=== PATIENT | male | born 1975 | race Caucasian/White ===

== ENCOUNTER 2016-12-13 02:00 | Observation (INO) | payer BC, OTHER ==
[~2016-12-13] VITALS: Ht 175.3 cm; Wt 106.1 kg
[~2016-12-13 02:00] MED LIST: LRT5 PO; MUSCLE RELAXOR
[2016-12-13] MEDS ORDERED: ACET650T97 PO (02:35)
[2016-12-13] MEDS ORDERED: SODIUM CHLORIDE 0.9% 1000ML 1,000 ML IV STA (02:45)
[2016-12-13] MEDS ORDERED: OPTIRAY 320 IV PRN (03:00)
[2016-12-13 03:12] LABS: BASO % 0.3 %; BASO ABS # 0.03 K/uL (0-0.2); COMPLETE YES; EOS % 2.5 %; HEMATOCRIT 41.2 % (42-52); IG% 0.1 %; LYMPH % 16.6 %; LYMPH ABS # 1.59 K/uL (1.2-3.4); MEAN CELL VOLUME 91.6 fL (80-100); MEAN CORPUSCULAR HEMOGLOBIN 33.3 pg (25-34); MEAN CORPUSCULAR HGB CONC 36.4 g/dl (32-36); MEAN PLATELET VOLUME 10.8 fL (7.4-10.4); NEUT % 76.5 %; PLATELET COUNT 251 K/uL (130-400); WHITE BLOOD COUNT 9.55 K/uL (4.8-10.8)
--- NOTE | 2016-12-13 03:23 | EMERGENCY ROOM VISIT NOTE ---
History Report prepared by Janice: Karen Faye Under the Supervision of: Dr. Bianka Au M.D. First contact with patient: 02:32 Chief Complaint: CONSTIPATION Stated Complaint: RECTAL BLEEDING/PAIN,CONSTIPATION Nursing Triage Summary: Patient ambulatory to triage, states "He has had, for a couple of days, rectal pain, bleeding and constipation. He is now getting chills." Patient had a tooth pulled three weeks ago. Patient feels that he is constipated because of taking the steroids, amoxil and motrin. Last BM for patient was about 26 hours ago. Patient reports nausea previously. No history of fissure or hemorrhoids. History of Present Illness The patient is a 41 year old male who presents to the Emergency Room with complaints of persistent rectal pain starting 3 days ago. He reports constipation, swelling, and bleeding in his rectum. His last bowel movement was yesterday. It was his first bowel movement in 3 days. He was on the toilet for 1.5 hours and found blood upon wiping. He has been constipated since he had his tooth pulled 3 weeks ago. He has been on Motrin, steroids, and amoxicillin. He reports some headache. He denies fever or abdominal pain. He also notes that he has a lesion on his penis. The patient and his used to be swingers. Source of History: patient, spouse/significant other Onset: 3 days ago Position: other (rectal) Quality: other (pain) Timing: other (persistent) Associated Symptoms: + headache, No abdominal pain, No fevers Note: Pt reports constipation, swelling and bleeding of the rectum, lesion on penis. Review of Systems See HPI for pertinent positives & negatives. A total of 10 systems reviewed and were otherwise negative. Past Medical & Surgical Medical Problems: (1) Diabetes Family History No pertinent family history stated. Social History Smoking Status: Former Smoker Marital Status: Housing Status: lives with significant other Current/Historical Medications Scheduled PRN Acetaminophen (Tylenol 8 Hour Arthritis), 650 MG PO DIRECTED PRN for Muscle Spasms Allergies Coded Allergies: Codeine (Verified Allergy, Mild, DELUSIONAL, 12/13/16) Physical Exam Vital Signs Date Time Temp Pulse Resp B/P Pulse Ox O2 Delivery O2 Flow Rate FiO2 12/13/16 05:42 88 16 124/58 96 Room Air 12/13/16 03:30 84 16 119/75 98 Room Air 12/13/16 02:04 36.9 89 18 136/85 96 Room Air Physical Exam Vital signs reviewed. General: Well-appearing, in no significant distress. HEENT: No scleral icterus, PERRLA, neck supple. Atraumatic. Cardiovascular: Regular rate and rhythm, no extra sounds. Pulmonary: Clear to auscultation bilaterally, normal work of breathing. Abdomen: Soft, nontender, nondistended, positive bowel sounds. : Excoriated area at the distal end of the shaft/glans penis with nodular growth to the right side of the glans penis. No urethral discharge, no scrotal swelling or tenderness Rectal: Tenderness and induration to the 6 o'clock position of the rectum with no active bleeding, small area of thrombosis Musculoskeletal: Atraumatic, no peripheral edema. Neurologic: Patient awake alert and oriented x 3. Skin: Warm, dry, penile irritation as described above Medical Decision & Procedures ER Provider Diagnostic Interpretation: Radiology results as stated below per my review and [facility] radiologist interpretation: CT Pelvis: No free air. No free fluid. Muscle density and bulk are within normal limits. Soft tissues are unremarkable. No spinal, pelvic, or femoral neck fractures. Pelvic contents are unremarkable. Appendix is visualized and within normal limits. Arterial calcifications. Laboratory Results 12/13/16 03:00 Red Blood Count 4.50, Mean Corpuscular Volume 91.6, Mean Corpuscular Hemoglobin 33.3, Mean Corpuscular Hemoglobin Concent 36.4, Mean Platelet Volume 10.8, Neutrophils (%) (Auto) 76.5, Lymphocytes (%) (Auto) 16.6, Monocytes (%) (Auto) 4.0, Eosinophils (%) (Auto) 2.5, Basophils (%) (Auto) 0.3, Neutrophils # (Auto) 7.30, Lymphocytes # (Auto) 1.59, Monocytes # (Auto) 0.38, Eosinophils # (Auto) 0.24, Basophils # (Auto) 0.03 12/13/16 03:00 12/13/16 04:30 Test 12/13/16 03:00 12/13/16 04:30 12/13/16 05:41 White Blood Count 9.55 K/uL (4.8-10.8) Red Blood Count 4.50 M/uL (4.7-6.1) Hemoglobin 15.0 g/dL (14.0-18.0) Hematocrit 41.2 % (42-52) Mean Corpuscular Volume 91.6 fL (80-100) Mean Corpuscular Hemoglobin 33.3 pg (25-34) Mean Corpuscular Hemoglobin Concent 36.4 g/dl (32-36) Platelet Count 251 K/uL (130-400) Mean Platelet Volume 10.8 fL (7.4-10.4) Neutrophils (%) (Auto) 76.5 % Lymphocytes (%) (Auto) 16.6 % Monocytes (%) (Auto) 4.0 % Eosinophils (%) (Auto) 2.5 % Basophils (%) (Auto) 0.3 % Neutrophils # (Auto) 7.30 K/uL (1.4-6.5) Lymphocytes # (Auto) 1.59 K/uL (1.2-3.4) Monocytes # (Auto) 0.38 K/uL (0.11-0.59) Eosinophils # (Auto) 0.24 K/uL (0-0.5) Basophils # (Auto) 0.03 K/uL (0-0.2) RDW Standard Deviation 43.1 fL (36.4-46.3) RDW Coefficient of Variation 12.8 % (11.5-14.5) Immature Granulocyte % (Auto) 0.1 % Immature Granulocyte # (Auto) 0.01 K/uL (0.00-0.02) Anion Gap 6.0 mmol/L (3-11) Est Creatinine Clear Calc Drug Dose 125.7 ml/min Estimated GFR () 119.2 Estimated GFR (Non- 102.9 BUN/Creatinine Ratio 9.1 (10-20) Calcium Level 8.0 mg/dl (8.5-10.1) Total Bilirubin 0.8 mg/dl (0.2-1) Alanine Aminotransferase (ALT/SGPT) 28 U/L (12-78) Alkaline Phosphatase 77 U/L (45-117) Total Protein 6.9 gm/dl (6.4-8.2) Albumin 2.9 gm/dl (3.4-5.0) Beta-Hydroxybutyric Acid 17.29 mg/dL (0.2-2.81) Direct Bilirubin mg/dl (0-0.2) Aspartate Amino Transf (AST/SGOT) U/L (15-37) Bedside Glucose 272 mg/dl (70-99) Laboratory results per my review. Medications Administered Medications (Trade) Dose Ordered Sig/Sabina Route Start Time Stop Time Status Last Admin Dose Admin Sodium Chloride (Nss 1000ml) 1,000 ml @ 999 mls/hr Q1H1M STAT IV 12/13/16 02:45 12/13/16 03:45 DC 12/13/16 03:02 999 MLS/HR Insulin Human Regular (novoLIN-R U-100 PER UNIT) 10 units NOW STAT SC 12/13/16 04:29 12/13/16 04:30 DC 12/13/16 04:42 10 UNITS Acetaminophen/ Hydrocodone Bitart ([place] 7.5/325 Tab) 1 tab NOW STAT PO 12/13/16 05:29 12/13/16 05:30 DC 12/13/16 05:38 1 TAB ED Course 0234: Past medical records reviewed. The patient was evaluated in room B2. A complete history and physical examination was performed. 0245: NSS 1000 ml @ 999 mls/hr IV. 0429: Insulin Human Regular 10 units SC. 0525: I reviewed the patient's case with Dr. Kellogg, [facility] hospitalist. He will evaluate the patient for further management. 0527: Upon reevaluation, the patient is resting comfortably. I discussed laboratory and radiographic results with him. He verbalized agreement of the treatment plan. The patient will be evaluated for further management and care. 0529: [place] 7.5/325 Tab 1 tab PO. 0533: Mycogen II Crm 1 appln EXT, Fluconazole 100 mg PO. Medical Decision Differential diagnosis: Sexually transmitted disease, perirectal abscess, thrombosed hemorrhoid, constipation, colitis, diverticulitis, cellulitis. This patient was evaluated and appeared to be in some discomfort. Physical examination reveals an area of induration on the rectum with a small thrombosis. It is unclear if this represented a thrombosed hemorrhoid or perirectal abscess. Patient's laboratory work reveals a blood sugar greater than 400. The patient was hydrated with normal saline solution. CT scan of the pelvis was performed and is negative. The patient was given 10 units of subcutaneous regular insulin. The penis is concerning for an area of yeast dermatitis with excoriation. Patient was given a Diflucan tablet. He was informed of the findings. He was given [place] 7.5 for his pain. As the patient has no primary care provider he will be evaluated by the hospitalist service for further management of the new onset diabetes. Patient is aware of plan and agrees. Consults Time Called: [phone] Consulting Physician: Dr. Kellogg, [facility] hospitalist Returned Call: [phone] I reviewed the patient's case with him. He will evaluate the patient for further management. Impression Primary Impression: Diabetes mellitus, new onset Additional Impressions: Thrombosed hemorrhoids Yeast dermatitis of penis Scribe Attestation The scribe's documentation has been prepared under my direction and personally reviewed by me in its entirety. I confirm that the note above accurately reflects all work, treatment, procedures, and medical decision making performed by me. Departure Information Dispostion Being Evaluated By Hospitalist Referrals No Doctor, Assigned (PCP) Patient Instructions My [facility] Problem Qualifiers
[2016-12-13 04:25] LABS: ALKALINE PHOSPHATASE 77 U/L (45-117); ALT/SGPT 28 U/L (12-78); BLOOD UREA NITROGEN 8 mg/dl (7-18); BUN/CREATININE RATIO 9.1 (10-20); CARBON DIOXIDE 29 mmol/L (21-32); CHLORIDE 100 mmol/L (98-107); CREATININE 0.91 mg/dl (0.60-1.40); GLUCOSE 463 mg/dl (70-99); SODIUM 135 mmol/L (136-145)
[2016-12-13] MEDS ORDERED: NovoLIN-R INSULIN PER UNIT CHARGE SC STA (04:29)
[2016-12-13 04:42] LABS: BETA-HYDROXYBUTYRATE 17.29 mg/dL (0.2-2.81)
[2016-12-13] MEDS ORDERED: HYDROCODONE/ACETAMINOPHEN 7.5/325MG TAB PO STA (05:29)
[2016-12-13] MEDS ORDERED: NYSTATIN/TRIAMCINOLONE CR 15 GM TUBE EXT STA (05:33)
[2016-12-13] MEDS ORDERED: FLUCONAZOLE 100 MG TAB PO STA (05:33)
[2016-12-13] MEDS ORDERED: ACETAMINOPHEN 325 MG TAB PO PRN (07:00)
[2016-12-13] MEDS ORDERED: DEXTROSE 50% 50 ML SYR IV PRN (07:00)
[2016-12-13] MEDS ORDERED: GLUCAGON FOR INJ 1 MG VIAL SQ PRN (07:00)
[2016-12-13] MEDS ORDERED: ONDANSETRON INJ 2 MG/ML 2 ML VIAL IV PRN (07:00)
[2016-12-13] MEDS ORDERED: HYDROCODONE/ACETAMINOPHEN 7.5/325MG TAB PO PRN (07:00)
[2016-12-13] MEDS ORDERED: GLUCOSE 40% GEL 15 GM TUBE PO PRN (07:00)
[2016-12-13] MEDS ORDERED: GLUCOSE 10 TABS/TUBE PO PRN (07:00)
[2016-12-13] MEDS ORDERED: IV FLUIDS COMPLETED PRN (07:00)
--- NOTE | 2016-12-13 07:10 | History and Physical ---
History & Physical Date & Time of Service: December 13, 2016 at 06:59 Chief Complaint: Rectal Bleeding/Pain,Constipation Primary Care Physician: No Doctor, Assigned History of Present Illness Source: patient, spouse The patient is a 41-year-old male who presents to the emergency department with worsening rectal pain that began about 3 days prior arrival. He reports having had dental surgery done about 3 weeks ago, and after which he was on motrin, amoxicillin and Medrol Dosepak. He reports he's been somewhat constipated since that interval. His last bowel movement was day before yesterday with that being the first in the past 3 days. Last evening he was on the toilet for 1 1/2 hours, and found blood upon wiping. He reports the pain seems to be extending through to his entire back and somewhat into his legs. He's had no previous episodes such as this in the past. He does report having had chills the previous evening as well. He also notes a penile lesion of indeterminate interval time. Social History Smoking Status: Former Smoker Smokeless Tobacco Use: No Alcohol Use: none Drug Use: none Marital Status: Housing status: lives with family Occupational Status: employed Multi-Drug Resistant Organisms History of MDRO: No Allergies Coded Allergies: Codeine (Verified Allergy, Mild, DELUSIONAL, 12/13/16) Home Medications Scheduled PRN Acetaminophen (Tylenol 8 Hour Arthritis), 650 MG PO DIRECTED PRN for Muscle Spasms Review of Systems Constitutional: + chills, No fatigue, No fever, No sweats, No weakness, No weight loss Eyes: No diplopia, No discharge, No eye pain, No problem reported, No redness, No worsening of vision ENT: No dental problems, No hearing loss, No nasal symptoms, No problem reported, No sore throat, No tinnitus, No trouble swallowing, No unusual epistaxis Respiratory: No cough, No dyspnea at rest, No dyspnea on exertion, No hemoptysis, No problem reported, No shortness of breath, No sputum, No wheezing Cardiovascular: No PND, No chest pain, No claudication, No edema, No orthopnea , No palpitations, No problem reported Abdomen: + GI bleeding, + pain, + problem reported (intractable rectal pain as noted) Musculoskeletal: No calf pain, No joint pain, No muscle pain, No problem reported, No swelling Genitourinary - Male: No dysuria, No hematuria, No impotence, No lesions, No penile discharge, No problem reported, No urinary frequency, No urinary hesitancy, No urinary incontinence, No urinary retention, No urinary urgency Neurologic: No balance problems, No memory loss, No numbness/tingling, No paralysis, No problem reported, No vertigo, No weakness Psychiatric: No anhedonism, No anxiety, No depression symptoms, No insomnia, No problem reported, No substance abuse Endocrine: No excessive thirst, No excessive urination, No fatigue, No problem reported Hematologic / Lymphatic: No abnormal bleeding/bruising, No clotting problems, No night sweats, No problem reported, No swollen lymph nodes Integumentary: No bleeding, No color change, No itch, No new/changing skin lesions, No problem reported, No rash Allergic / Immunologic: No environmental allergies, No food allergies, No frequent infections, No hives, No pet sensitivities, No poor healing, No problem reported, No prolonged convalescence, No seasonal allergies Physical Exam Vital Signs Date Time Temp Pulse Resp B/P Pulse Ox O2 Delivery O2 Flow Rate FiO2 12/13/16 05:42 88 16 124/58 96 Room Air 12/13/16 03:30 84 16 119/75 98 Room Air 12/13/16 02:04 36.9 89 18 136/85 96 Room Air General Appearance: WD/WN, no apparent distress Head: normocephalic, atraumatic Eyes: normal inspection, PERRL, EOMI, sclerae normal ENT: normal ENT inspection, hearing grossly normal, pharynx normal Neck: supple, no adenopathy, thyroid normal, no JVD, no carotid bruits, trachea midline Respiratory/Chest: chest non-tender, lungs clear, normal breath sounds, no respiratory distress, no accessory muscle use Cardiovascular: regular rate, rhythm, no edema, no gallop, no JVD, no murmur, normal peripheral pulses Abdomen/GI: normal bowel sounds, non tender, soft, no organomegaly, no pulsatile mass, + pertinent finding (thrombosed hemorrhoid on rectal exam) Back: normal inspection, no CVA tenderness, no muscle spasm, normal range of motion Extremities/Musculoskelatal: normal inspection, no calf tenderness, normal capillary refill, no pedal edema, normal range of motion, non-tender 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, no motor/sensory deficits, alert, normal mood/affect, normal reflexes, oriented x 3 Skin: normal color, warm/dry, no rash Lymphatic: no adenopathy Diagnostics Laboratory Results Results Past 24 Hours Test 12/13/16 03:00 12/13/16 04:30 12/13/16 04:40 12/13/16 05:41 Range/Units White Blood Count 9.55 4.8-10.8 K/uL Red Blood Count 4.50 4.7-6.1 M/uL Hemoglobin 15.0 14.0-18.0 g/dL Hematocrit 41.2 42-52 % Mean Corpuscular Volume 91.6 80-100 fL Mean Corpuscular Hemoglobin 33.3 25-34 pg Mean Corpuscular Hemoglobin Concent 36.4 32-36 g/dl Platelet Count 251 130-400 K/uL Mean Platelet Volume 10.8 7.4-10.4 fL Neutrophils (%) (Auto) 76.5 % Lymphocytes (%) (Auto) 16.6 % Monocytes (%) (Auto) 4.0 % Eosinophils (%) (Auto) 2.5 % Basophils (%) (Auto) 0.3 % Neutrophils # (Auto) 7.30 1.4-6.5 K/uL Lymphocytes # (Auto) 1.59 1.2-3.4 K/uL Monocytes # (Auto) 0.38 0.11-0.59 K/uL Eosinophils # (Auto) 0.24 0-0.5 K/uL Basophils # (Auto) 0.03 0-0.2 K/uL RDW Standard Deviation 43.1 36.4-46.3 fL RDW Coefficient of Variation 12.8 11.5-14.5 % Immature Granulocyte % (Auto) 0.1 % Immature Granulocyte # (Auto) 0.01 0.00-0.02 K/uL Sodium Level 135 136-145 mmol/L Potassium Level 3.5-5.1 mmol/L Chloride Level 100 98-107 mmol/L Carbon Dioxide Level 29 21-32 mmol/L Anion Gap 6.0 3-11 mmol/L Blood Urea Nitrogen 8 7-18 mg/dl Creatinine 0.91 0.60-1.40 mg/dl Est Creatinine Clear Calc Drug Dose 125.7 ml/min Estimated GFR () 119.2 Estimated GFR (Non- 102.9 BUN/Creatinine Ratio 9.1 10-20 Random Glucose 463 70-99 mg/dl Calcium Level 8.0 8.5-10.1 mg/dl Total Bilirubin 0.8 0.2-1 mg/dl Direct Bilirubin 0-0.2 mg/dl Aspartate Amino Transf (AST/SGOT) 15-37 U/L Alanine Aminotransferase (ALT/SGPT) 28 12-78 U/L Alkaline Phosphatase 77 45-117 U/L Total Protein 6.9 6.4-8.2 gm/dl Albumin 2.9 3.4-5.0 gm/dl Beta-Hydroxybutyric Acid 17.29 0.2-2.81 mg/dL Bedside Glucose 315 272 70-99 mg/dl Test 12/13/16 06:00 12/13/16 06:57 Range/Units Impression Assessment and Plan Intractable rectal pain/thrombosed hemorrhoid/rectal bleeding--the patient be admitted to the medical floor and kept nothing by mouth. Place on normal saline with potassium chloride 20 mEq 100 mils per hour. [place] 7.5/325 given in the emergency department helped the pain, and will be continued every 4 hours when necessary. We'll consult general surgery. Hyperglycemia--would not given the diagnosis of diabetes at this [facility]. We'll check hemoglobin A1c, and Accu-Cheks before meals and at bedtime with NovoLog coverage per scale. He'll need to have dietary counseling. He was of noted on a course of Medrol Dosepak recently. Penile lesion-- commonly has yeast infections. At the time on examining him he has been loaded up with a large amount of cream, which limits my examination. He likely has a yeast balanitis and will be treated as such. Level of Care Med/Surg Advanced Directives Existing Advance Directive: No Existing Living Will: No Existing Power of Panel Monitor: No Resuscitation Status FULL RESUSCITATION VTE Prophylaxis VTE Risk Assessment Done? Y/N: Yes Risk Level: Low Given or contraindicated: SCD's Social Service Consult None Apply
--- NOTE | 2016-12-13 07:27 | DIAGNOSTIC IMAGING REPORT ---
CT OF THE PELVIS WITH IV CONTRAST CT DOSE: 597.70 mGy.cm CLINICAL HISTORY: Rectal bleeding, pain and constipation. TECHNIQUE: Axial images of the pelvis were obtained following intravenous injection of 94 cc of Optiray 320 IV. COMPARISON STUDY: None. FINDINGS: No perirectal or perianal abscess or fistula is identified. Caliber and wall thickness of visualized small and large bowel are normal. The appendix is normal. There is sigmoid diverticulosis without evidence for acute diverticulitis. No pelvic lymphadenopathy is present. No pelvic mass or fluid collection is present. No suspicious skeletal lesions are identified. IMPRESSION: No significant abnormality within the pelvis. No perirectal/perianal abscess. Electronically signed by: Lalito Cardona M.D. 12/13/2016 7:26 AM Dictated Date/Time: 12/13/2016 7:23 AM
[2016-12-13 08:00] VITALS: BP 116/76; PULSE 76; TEMP 37.3; O2SAT 96; Ht 175.3 cm; Wt 106.1 kg
[2016-12-13] MEDS: INSULIN ASPART 100 UNITS/ML 3 ML PEN SC SCH ×2 (09:51→11:00)
[2016-12-13] MEDS ORDERED: HYDROmorphone INJ 1 MG/ML SYR IV PRN (10:00)
[2016-12-13] MEDS ORDERED: LIDOCAINE/EPINEPHRINE 1% 20 ML VIAL INFIL ONE (10:15)
[2016-12-13] MEDS ORDERED: SULF800T23 PO (11:57)
[2016-12-13] MEDS ORDERED: HYDR-3983 PO (11:57)
[2016-12-13] MEDS ORDERED: DFL100 PO (11:57)
--- NOTE | 2016-12-13 12:01 | Discharge Instructions ---
Discharge Instructions Date of Service December 13, 2016. Admission Reason for Admission: Hyperglycemia,Rectal Pain Or Anal Pain Discharge Discharge Diagnosis / Problem: hemmorhid, abscess Discharge Goals Goal(s): Decrease discomfort, Improve function, Increase independence, Improve disease control, Diagnostic testing, Therapeutic intervention Activity Recommendations Activity Limitations: resume your previous activity Shower/Bathe: no limitations . Instructions / Follow-Up Instructions / Follow-Up Patient to be discharged home Prescriptions for pain medication norco to take as directed Please take antibiotic bactrim twice a day for 6 days and fluconazole once a day for 7 more days Please follow up with surgeon Dr Iqbal in 1-2 weeks Current Hospital Diet Patient's current hospital diet: Full Liquid Diet, Diabetes Type 2 Diet Discharge Diet Recommended Diet: Diabetes Type 2 Diet Pending Studies Studies pending at discharge: no Laboratory Results Hemoglobin A1c Test 12/13/16 03:00 Range/Units Medical Emergencies . Who to Call and When: Medical Emergencies: If at any time you feel your situation is an emergency, please call 911 immediately. . Non-Emergent Contact Non-Emergency issues call your: Primary Care Provider Call Non-Emergent contact if: you have a fever, your pain is worsening . . "Provider Documentation" section prepared by Thomas Hinson. . VTE Core Measure Inpt VTE Proph given/why not?: SCD's
[2016-12-13] MEDS ORDERED: PNEUMOCOCCAL ADMINISTRATION CHARGE ONE (12:30)
[2016-12-13] MEDS ORDERED: PNEUMOCOCCAL POLYSACCHARIDES 25 MCG/0.5 ML VIAL/SYR IM. ONE (12:30)
[2016-12-13 15:10] VITALS: BP 104/65; PULSE 71; TEMP 36.8; O2SAT 97
--- NOTE | 2016-12-13 15:20 | Discharge Summary ---
Discharge Summary Date of Service December 13, 2016. Discharge Summary Admission Date: December 13, 2016 at 06:50 Discharge Date: December 13, 2016 Discharge Disposition: Home Principal Diagnosis: THrombosed hemmorhoid, abscess Consultations: General surgery Medication Reconciliation New Medications: Sulfa/Trimethoprim (Bactrim Ds 800MG/160MG) Tab 1 TAB PO BID for 7 Days, #6 TAB Fluconazole (Fluconazole) 100 Mg Tab 100 MG PO QAM for 7 Days, #7 TAB Hydrocodone/Acetaminophen 7.5MG/325MG ([place] 7.5MG/325MG) Tab 1 TAB PO Q4H PRN for Pain, #30 TAB PRN PAIN Continued Medications: Acetaminophen (Tylenol 8 Hour Arthritis) 650 Mg Tab 650 MG PO DIRECTED PRN for Muscle Spasms Discharge Exam Review of Systems: Constitutional: No chills, No fever Respiratory: No cough, No shortness of breath, No sputum, No wheezing Cardiovascular: No chest pain, No orthopnea Abdomen: No diarrhea, No nausea, No pain, No vomiting Musculoskeletal: No joint pain, No muscle pain Genitourinary - Male: No dysuria, No hematuria Physical Exam: General Appearance: WD/WN, no apparent distress Neck: supple, no adenopathy Respiratory/Chest: lungs clear, normal breath sounds Cardiovascular: no edema, no gallop Abdomen / GI: non tender, soft Neurologic/Psychiatric: alert, oriented x 3 Hospital Course Intractable rectal pain/thrombosed hemorrhoid/rectal bleeding--the patient admitted to the medical floor and kept nothing by mouth. Place on normal saline with potassium chloride 20 mEq 100 mils per hour. [place] 7.5/325 given in the emergency department helped the pain, and will be continued every 4 hours when necessary. We'll consult general surgery. Abscess I&D, bactrim and norco on discharge. F/U with general surgery in 1 week Hyperglycemia--would not given the diagnosis of diabetes at this [facility]. We'll check hemoglobin A1c, and Accu-Cheks before meals and at bedtime with NovoLog coverage per scale. He'll need to have dietary counseling. He was of noted on a course of Medrol Dosepak recently. Penile lesion-- commonly has yeast infections. At the time on examining him he has been loaded up with a large amount of cream, which limits my examination. He likely has a yeast balanitis and will be treated as such. Fluconazole given on discharge. Total Time Spent: Greater than 30 minutes This includes examination of the patient, discharge planning, medication reconciliation, and communication with other providers. Discharge Instructions Please refer to the electronic Patient Visit Report (Discharge Instructions) for additional information.
--- NOTE | 2016-12-13 16:02 | Surgery Consultation ---
Consultation Date of Consultation: December 13, 2016. Attending Physician: Thomas Hinson D.O. History of Present Illness pt with a 4 day hx of severe rectal pain. ? etiology. also saw small amount of blood when wiping. admitted last night with thrombosed hemorrhoid Past Medical/Surgical History Medical Problems: (1) Diabetes mellitus, new onset Status: Acute (2) Thrombosed hemorrhoids Status: Acute (3) Yeast dermatitis of penis Status: Acute Social History Smoking Status: Former Smoker Smokeless Tobacco Use: No Alcohol Use: none Drug Use: none Marital Status: Housing Status: lives with significant other Occupation Status: employed Allergies Coded Allergies: Codeine (Verified Allergy, Mild, DELUSIONAL, 12/13/16) Home Medications Scheduled Fluconazole (Fluconazole), 100 MG PO QAM Sulfa/Trimethoprim (Bactrim Ds 800MG/160MG), 1 TAB PO BID Scheduled PRN Acetaminophen (Tylenol 8 Hour Arthritis), 650 MG PO DIRECTED PRN for Muscle Spasms Hydrocodone/Acetaminophen 7.5MG/325MG ([place] 7.5MG/325MG), 1 TAB PO Q4H PRN for Pain Review of Systems Abdomen: + problem reported (rectal pain as per hpi) Physical Exam Date Time Temp Pulse Resp B/P Pulse Ox O2 Delivery O2 Flow Rate FiO2 12/13/16 15:10 36.8 71 18 104/65 97 Room Air 12/13/16 14:42 37.3 76 18 96 Room Air 12/13/16 08:00 37.3 76 18 116/76 96 Room Air 12/13/16 08:00 37.3 76 18 116/76 96 Room Air 12/13/16 07:09 78 124/83 96 12/13/16 05:42 88 16 124/58 96 Room Air 12/13/16 03:30 84 16 119/75 98 Room Air 12/13/16 02:04 36.9 89 18 136/85 96 Room Air General Appearance: + mild distress Head: normocephalic, atraumatic Eyes: EOMI ENT: hearing grossly normal Neck: supple, no JVD Respiratory/Chest: no respiratory distress, no accessory muscle use Abdomen/GI: non tender, soft, + pertinent finding (very tender fluid collection left lateral side of anus/rectum. exquisetly tender. c/w abcess) Neurologic/Psych: alert, oriented x 3 Skin: normal color, warm/dry Laboratory Results Last 24 Hours Test 12/13/16 03:00 12/13/16 04:30 12/13/16 04:40 12/13/16 05:41 White Blood Count 9.55 K/uL Red Blood Count 4.50 M/uL Hemoglobin 15.0 g/dL Hematocrit 41.2 % Mean Corpuscular Volume 91.6 fL Mean Corpuscular Hemoglobin 33.3 pg Mean Corpuscular Hemoglobin Concent 36.4 g/dl Platelet Count 251 K/uL Mean Platelet Volume 10.8 fL Neutrophils (%) (Auto) 76.5 % Lymphocytes (%) (Auto) 16.6 % Monocytes (%) (Auto) 4.0 % Eosinophils (%) (Auto) 2.5 % Basophils (%) (Auto) 0.3 % Neutrophils # (Auto) 7.30 K/uL Lymphocytes # (Auto) 1.59 K/uL Monocytes # (Auto) 0.38 K/uL Eosinophils # (Auto) 0.24 K/uL Basophils # (Auto) 0.03 K/uL RDW Standard Deviation 43.1 fL RDW Coefficient of Variation 12.8 % Immature Granulocyte % (Auto) 0.1 % Immature Granulocyte # (Auto) 0.01 K/uL Sodium Level 135 mmol/L Potassium Level mmol/L mmol/L Chloride Level 100 mmol/L Carbon Dioxide Level 29 mmol/L Anion Gap 6.0 mmol/L Blood Urea Nitrogen 8 mg/dl Creatinine 0.91 mg/dl Est Creatinine Clear Calc Drug Dose 125.7 ml/min Estimated GFR () 119.2 Estimated GFR (Non- 102.9 BUN/Creatinine Ratio 9.1 Random Glucose 463 mg/dl Calcium Level 8.0 mg/dl Total Bilirubin 0.8 mg/dl Direct Bilirubin mg/dl mg/dl Aspartate Amino Transf (AST/SGOT) U/L U/L Alanine Aminotransferase (ALT/SGPT) 28 U/L Alkaline Phosphatase 77 U/L Total Protein 6.9 gm/dl Albumin 2.9 gm/dl Beta-Hydroxybutyric Acid 17.29 mg/dL Bedside Glucose 315 mg/dl 272 mg/dl Test 12/13/16 06:00 12/13/16 11:12 Bedside Glucose 170 mg/dl Assessment & Plan migue-rectal abcess drained at bedside ok for d/c on oral antibiotics discussed local wound care f/u in office with me in 1 week.
--- NOTE | 2016-12-13 18:59 | OPERATIVE REPORT ---
DATE OF OPERATION: 12/13/2016 PREOPERATIVE DIAGNOSIS: Perirectal abscess. POSTOPERATIVE DIAGNOSIS: Same. PROCEDURE: I\T\D of perirectal abscess. SURGEON: Dr. Iqbal. ESTIMATED BLOOD LOSS: Approximately 10 mL. COMPLICATIONS: No immediate. ANESTHESIA: IV Dilaudid with 1% local lidocaine. DESCRIPTION OF PROCEDURE: At the bedside, the patient was placed in a right lateral decubitus position. The rectal area was sterilely prepped and draped with Betadine. We used 1% lidocaine to anesthetize the skin and anoderm over the area of the palpable abscess. An 11 blade scalpel was used to make an incision over it. We expressed a moderate amount of white pus. It was not foul smelling and did not appear to be consistent with anaerobic. We irrigated the wound and I placed some gauze, the corner of the gauze into the wound as a packing. The patient tolerated the procedure well. I attest to the content of the Intraoperative Record and any orders documented therein. Any exceptio ns are noted below.
[2016-12-14 06:24] LABS: ESTIMATED AVERAGE GLUCOSE 407 mg/dl; HA1C FLAG Normal (Normal)
[2016-12-14] MEDS ORDERED: FLUCONAZOLE 100 MG TAB PO SCH (08:00)
[2016-12-16 00:48] LABS: CHLAMYDIA TRACH RNA*** NOT DETECTED (NOT DETECTED); GC (NEIS GONORRHOEAE)RNA** NOT DETECTED (NOT DETECTED)
[2016-12-22] MEDS ORDERED: AMOX875T PO (13:58)
[2016-12-22] MEDS ORDERED: INSDGIPEN SC (13:58)
[2016-12-22] MEDS ORDERED: OXYC-57 PO (13:58)
[2016-12-22] MEDS ORDERED: GLC500 PO (13:58)
[2017-06-11] MEDS ORDERED: LACTCHW3 PO (15:06)
[2017-06-11] MEDS ORDERED: AMOX875T PO (15:06)
[2017-06-11] MEDS ORDERED: RXC5 PO (15:06)
[2017-06-12] MEDS ORDERED: CEPH500C PO (15:42)
== END 2016-12-13 15:45 | disposition home or self-care (01) ==
LOC: ENRESERVDT → ENRESERVTM → C.EDB 02:01 → C.4E 06:50
PROVIDERS: ADMIT Hospitalist; ATTEND Hospitalist
DX: K64.5 Perianal venous thrombosis (principal); K61.1 Rectal abscess; E11.9 Type 2 diabetes mellitus without complications; Z87.891 Personal history of nicotine dependence; Z88.5 Allergy status to narcotic agent

== ENCOUNTER 2016-12-19 12:15 | Inpatient (IN) | payer OTHER ==
[~2016-12-19] VITALS: Ht 175.3 cm; Wt 105.7 kg
[~2016-12-19 12:15] MED LIST changes: +ACET650T97 PO; +DFL100 PO; +HYDR-3983 PO; -LRT5 PO; -MUSCLE RELAXOR; +SULF800T23 PO
[2016-12-19] MEDS ORDERED: SODIUM CHLORIDE 0.9% 1000ML 1,000 ML IV STA (12:56)
[2016-12-19] MEDS ORDERED: OPTIRAY 320 IV PRN (13:15)
[2016-12-19 13:50] LABS: BASO % 0.3 %; BASO ABS # 0.02 K/uL (0-0.2); COMPLETE YES; EOS % 1.8 %; IG% 0.1 %; LYMPH % 14.2 %; LYMPH ABS # 1.08 K/uL (1.2-3.4); MEAN CELL VOLUME 92.3 fL (80-100); MEAN CORPUSCULAR HEMOGLOBIN 32.2 pg (25-34); MEAN CORPUSCULAR HGB CONC 34.9 g/dl (32-36); MEAN PLATELET VOLUME 10.1 fL (7.4-10.4); MONO % 8.8 %; NEUT % 74.8 %; PLATELET COUNT 294 K/uL (130-400); RED BLOOD COUNT 4.44 M/uL (4.7-6.1); WHITE BLOOD COUNT 7.59 K/uL (4.8-10.8)
[2016-12-19 14:14] LABS: BUN/CREATININE RATIO 11.9 (10-20); CALCIUM 8.6 mg/dl (8.5-10.1); CREATININE 0.91 mg/dl (0.60-1.40); POTASSIUM 4.1 mmol/L (3.5-5.1)
[2016-12-19] MEDS ORDERED: INSULIN HUMAN REGULAR PER UNIT 5 UNITS in SYRINGE 0 ML IV STA (14:21)
[2016-12-19 14:26] LABS: BETA-HYDROXYBUTYRATE 4.02 mg/dL (0.2-2.81)
[2016-12-19] MEDS ORDERED: NovoLIN-R INSULIN PER UNIT CHARGE ONE ×2 (14:31)
[2016-12-19] MEDS ORDERED: NovoLIN-R INSULIN PER UNIT CHARGE SQ ONE (15:00)
--- NOTE | 2016-12-19 15:19 | DIAGNOSTIC IMAGING REPORT ---
CT pelvis PELVIS W/IV CONT ONLY (CT) CLINICAL HISTORY: Pain. Rectal pain. Discharge. TECHNIQUE: Transaxial acquisition. Multi axial reformatted images. COMPARISON STUDY: 12/13/2016 FINDINGS: Bowel pattern is nonobstructive. The appendix is normal. Bladder is midline. There is no evidence for an intrapelvic collection or mass. There is slight perianal wall thickening medially left lateral to the anal verge. No evidence for drainable abscess or collection is seen. A component of mild perirectal cellulitis may be present. Inguinal regions are unremarkable. Osseous structures are intact. IMPRESSION: 1. Slight thickening of the tissues immediately left lateral to the anal verge. 2. This is consistent with a mild focal left perirectal infiltrative process, although there is no evidence for drainable abscess or collection. 3. The appearance is most consistent with that of a localized left perirectal cellulitis. 4. Remainder of the pelvic CT is negative Electronically signed by: Isaac Ndiaye M.D. 12/19/2016 3:18 PM Dictated Date/Time: 12/19/2016 3:15 PM
[2016-12-19] MEDS ORDERED: MoRPHine SULFATE 4 MG/ML 1 ML CARP\\VIAL IV STA (15:27)
[2016-12-19] MEDS ORDERED: AMPICILLIN/SULBACTAM SOD INJ 3,000 MG in SODIUM CHLORIDE 0.9% 100ML 100 ML IV STA (15:43)
[2016-12-19] MEDS ORDERED: ENOXAPARIN 40 MG/0.4 ML SYR SQ SCH (15:45)
[2016-12-19] MEDS ORDERED: MAGNESIUM HYDROXIDE SUSP 30 ML UDC PO PRN (15:45)
[2016-12-19] MEDS ORDERED: ONDANSETRON INJ 2 MG/ML 2 ML VIAL IV PRN (15:45)
[2016-12-19] MEDS ORDERED: ALUMINUM/MAGNESIUM/SIMETH (MAALOX MAX) 30 ML UDC PO PRN (15:45)
[2016-12-19] MEDS ORDERED: MoRPHine SULFATE 4 MG/ML 1 ML CARP\\VIAL IV PRN (15:45)
[2016-12-19] MEDS ORDERED: POLYETHYLENE (MIRALAX) 17 GM PACK PO PRN (15:45)
[2016-12-19] MEDS ORDERED: ACETAMINOPHEN 325 MG TAB PO PRN (15:45)
[2016-12-19] MEDS ORDERED: GLUCOSE 40% GEL 15 GM TUBE PO PRN (16:00)
[2016-12-19] MEDS ORDERED: DEXTROSE 50% 50 ML SYR IV PRN (16:00)
[2016-12-19] MEDS ORDERED: GLUCOSE 10 TABS/TUBE PO PRN (16:00)
[2016-12-19] MEDS ORDERED: GLUCAGON FOR INJ 1 MG VIAL SQ PRN (16:00)
[2016-12-19 16:17] LABS: INR 0.9 (0.9-1.1)
[2016-12-19 16:24] LABS: HEMATOCRIT 40.9 % (42-52); MEAN CELL VOLUME 92.1 fL (80-100); MEAN CORPUSCULAR HEMOGLOBIN 32.4 pg (25-34); MEAN CORPUSCULAR HGB CONC 35.2 g/dl (32-36); MEAN PLATELET VOLUME 9.9 fL (7.4-10.4); PLATELET COUNT 289 K/uL (130-400); RED BLOOD COUNT 4.44 M/uL (4.7-6.1)
[2016-12-19 17:30] VITALS: BP 125/81; PULSE 69; TEMP 36.5; O2SAT 97; BMI 34.5
[2016-12-19] MEDS: OXYCODONE/ACETAMINOPHEN 5-325 TAB PO PRN ×2 (17:51→22:05)
--- NOTE | 2016-12-19 18:05 | History and Physical ---
History & Physical Date & Time of Service: December 19, 2016 at 17:56 Chief Complaint: Cellulitis Primary Care Physician: No Doctor, Assigned Social History Smoking Status: Never Smoker Drug Use: none Marital Status: Housing status: lives with family Occupational Status: employed Multi-Drug Resistant Organisms History of MDRO: No Allergies Coded Allergies: Codeine (Verified Allergy, Mild, DELUSIONAL, 12/13/16) Home Medications Scheduled PRN Hydrocodone/Acetaminophen 7.5MG/325MG ([place] 7.5MG/325MG), 1 TAB PO Q4H PRN for Pain Physical Exam Vital Signs Date Time Temp Pulse Resp B/P Pulse Ox O2 Delivery O2 Flow Rate FiO2 12/19/16 17:21 72 20 142/81 97 12/19/16 15:46 70 18 129/76 97 Room Air 12/19/16 14:58 66 18 125/85 97 Room Air 12/19/16 13:36 73 18 123/69 99 Room Air 12/19/16 12:17 36.5 85 18 121/76 98 Room Air Diagnostics Laboratory Results Results Past 24 Hours Test 12/19/16 12:32 12/19/16 13:20 12/19/16 14:35 12/19/16 15:12 Range/Units White Blood Count 7.59 4.8-10.8 K/uL Red Blood Count 4.44 4.7-6.1 M/uL Hemoglobin 14.3 14.0-18.0 g/dL Hematocrit 41.0 42-52 % Mean Corpuscular Volume 92.3 80-100 fL Mean Corpuscular Hemoglobin 32.2 25-34 pg Mean Corpuscular Hemoglobin Concent 34.9 32-36 g/dl Platelet Count 294 130-400 K/uL Mean Platelet Volume 10.1 7.4-10.4 fL Neutrophils (%) (Auto) 74.8 % Lymphocytes (%) (Auto) 14.2 % Monocytes (%) (Auto) 8.8 % Eosinophils (%) (Auto) 1.8 % Basophils (%) (Auto) 0.3 % Neutrophils # (Auto) 5.67 1.4-6.5 K/uL Lymphocytes # (Auto) 1.08 1.2-3.4 K/uL Monocytes # (Auto) 0.67 0.11-0.59 K/uL Eosinophils # (Auto) 0.14 0-0.5 K/uL Basophils # (Auto) 0.02 0-0.2 K/uL RDW Standard Deviation 42.9 36.4-46.3 fL RDW Coefficient of Variation 12.7 11.5-14.5 % Immature Granulocyte % (Auto) 0.1 % Immature Granulocyte # (Auto) 0.01 0.00-0.02 K/uL Sodium Level 134 136-145 mmol/L Potassium Level 4.1 3.5-5.1 mmol/L Chloride Level 99 98-107 mmol/L Carbon Dioxide Level 28 21-32 mmol/L Anion Gap 7.0 3-11 mmol/L Blood Urea Nitrogen 11 7-18 mg/dl Creatinine 0.91 0.60-1.40 mg/dl Est Creatinine Clear Calc Drug Dose 125.4 ml/min Estimated GFR () 119.2 Estimated GFR (Non- 102.9 BUN/Creatinine Ratio 11.9 -20 Random Glucose 418 70-99 mg/dl Calcium Level 8.6 8.5-10.1 mg/dl Beta-Hydroxybutyric Acid 4.02 0.2-2.81 mg/dL Prothrombin Time 10.0 9.0-12.0 SECONDS Prothromb Time International Ratio 0.9 0.9-1.1 Bedside Glucose 310 240 70-99 mg/dl Test 12/19/16 15:47 12/19/16 16:15 Range/Units Bedside Glucose 243 70-99 mg/dl White Blood Count 8.10 4.8-10.8 K/uL Red Blood Count 4.44 4.7-6.1 M/uL Hemoglobin 14.4 14.0-18.0 g/dL Hematocrit 40.9 42-52 % Mean Corpuscular Volume 92.1 80-100 fL Mean Corpuscular Hemoglobin 32.4 25-34 pg Mean Corpuscular Hemoglobin Concent 35.2 32-36 g/dl RDW Standard Deviation 42.7 36.4-46.3 fL RDW Coefficient of Variation 12.6 11.5-14.5 % Platelet Count 289 130-400 K/uL Mean Platelet Volume 9.9 7.4-10.4 fL Microbiology Results 12/19/16 Gram Stain, Received Pending 12/19/16 Wound Culture, Received Pending Impression Assessment and Plan obs #[id number] VTE Prophylaxis VTE Risk Assessment Done? Y/N: Yes Risk Level: Moderate
[2016-12-19] MEDS ORDERED: IV FLUIDS COMPLETED PRN (18:45)
[2016-12-19] MEDS: AMPICILLIN/SULBACTAM SOD INJ 1,500 MG in SODIUM CHLORIDE 0.9% 100ML 100 ML IV SCH ×3 (18:55→23:17)
[2016-12-19 19:00] LABS: CHOLESTEROL/HDL RATIO 5.7
--- NOTE | 2016-12-19 19:12 | HISTORY & PHYSICAL EXAMINATION ---
DATE OF ADMISSION: 12/19/2016 CHIEF COMPLAINT: Rectal pain. HISTORY OF PRESENT ILLNESS: The patient is a very pleasant 41-year-old male who actually had been here briefly with a perirectal abscess that was drained on December 13. He went home, he was feeling okay and then probably around yesterday started having worse pain. He has not had fevers, chills, or sweats. He has not had any constitutional symptoms otherwise, but was having worse and worse rectal pain. He called for further advice and is directed for evaluation for concern that he may be developing another abscess, came here to the ER and when his rectum was examined aissatou pus was coming out rather profusely per the ER. Because of this, we were asked to see him for concern of perirectal cellulitis and started him on IV antibiotics to ensure improvement given the sensitive area infected. Separately he is a new onset diabetic, whenever he was here the last time he was here very briefly, admitted in home in the same day and A1c was drawn at that time and was pending, but he had left before results were back, it was 15.8. He had no prior knowledge of being diabetic and did not really have much preconceived notion of what diabetes means and so we had an extensive discussion in that regard. REVIEW OF SYSTEMS: Otherwise negative, except for as above. PAST MEDICAL HISTORY: New onset type 2 diabetes and his recent perirectal abscess. MEDICATIONS: His only home medication was [place] 7.5/325 that he was given for pain post-perirectal abscess drainage. PAST SURGICAL HISTORY: Drainage of the perirectal abscess. FAMILY HISTORY: He had a few second degree relatives with type 2 diabetes but no strong family history, otherwise no notable family history. SOCIAL HISTORY: He is not a smoker. He is . He is employed. He eats a reasonable amount starchy carbs and a reasonable amount of soda. Does not get a lot of exercise. ALLERGIES: CODEINE. PHYSICAL EXAMINATION: VITAL SIGNS: Temp 36.5, pulse 85, respiratory rate 18, blood pressure 121/76, 98% on room air. GENERAL: He is awake, alert, oriented x3, pleasant, in no acute distress. HEENT: Normocephalic, atraumatic. Mucous membranes are moist. CARDIOVASCULAR: Regular without rubs, murmurs, or gallops. LUNGS: Clear to auscultation bilaterally. No rales, rhonchi, or wheezes with good effort. ABDOMEN: Soft, nondistended, nontender. No masses or organomegaly. EXTREMITIES: Without cyanosis, clubbing or edema. No calf tenderness. SKIN: Shows no rashes, no pallor or icterus. RECTAL EXAM: He had been examined earlier by the ER with a description of definitely significant amount of pus and concern on perirectal erythema. When I examined him, it looks surprisingly normal, maybe a dull pink on the side and no exudate, so clearly markedly improved from his initial exam only a few hours ago. EXTREMITIES: Show no cyanosis, clubbing or edema. MUSCULOSKELETAL: Yields no gross lesions. NEUROLOGIC: Shows cranial nerves II-XII to be grossly intact. Gross motor and sensory are intact. MENTAL STATE: Shows good recent and remote recall. Normal mood and affect. Good judgment and insight. LABS AND DIAGNOSTICS: CBC shows a white count of 7.59, hemoglobin 14.3, platelets 294. Basic metabolic panel with sodium 134, potassium 4.1, chloride 99, CO2 28, BUN 11, creatinine 0.91, calcium 8.6, glucose 418, BHB 4.02. PT of 10 with an INR of 0.9. CT of his pelvis shows a nonobstructive bowel pattern. Appendix is normal. Bladder midline. No evidence of intrapelvic collection or mass, slight perianal wall thickening medially to left lateral to the anal verge. No evidence of drainable abscess or collection. Component of mild perirectal cellulitis may be present. Inguinal regions unremarkable. Osseous structures intact. So, essentially findings consistent with a left perirectal cellulitis without abscess. ASSESSMENT AND PLAN: 1. Perirectal cellulitis. Fortunately, no clear evidence of abscess. Given that he just had a surgery less than a week ago, we will ask surgery to take a look at him to ensure there is nothing that we are missing or is not being seen on CT or that there is not anything else that should be done with local care. Otherwise, we will continue him on Unasyn as started in the ER to allow for an easy transition to Augmentin at discharge. Fortunately, he is not showing any signs or symptoms of sepsis and the main reason to keep him in the hospital would be because of the very sensitive nature of the area involved in infection, should it worsen things could certainly worsen dramatically in a hurry with severe consequences, that said, given how quickly things have improved, I suspect that simply manipulation for exam, draining all the pus that was noted when the ER did their exam probably improved situation dramatically, especially given that on my exam, it is barely even noticeable to be cellulitis. I suspect with all of this he will likely be safe to go home tomorrow. I also suspect that his markedly uncontrolled diabetes is rather large contributor to why he has got this infection. 2. New onset uncontrolled type 2 diabetes. He was unaware of being a diabetic. He does not exercise much. It sounds like he does not eat terribly, but does eat a lot of potatoes and a reasonable amount of soda. We had extensive discussions on the basics of diabetes including "high sugars clogged arteries" and insulin resistance being a progressive process, particularly when faced with more exposure of simple carbohydrates. I discussed the critical importance of lifestyle and controlling and/or putting type 2 diabetes in remission. Discussed medications and discussed ongoing outpatient management as well as discussed consequences of uncontrolled type 2 diabetes such as heart attack, stroke, retinopathy, nephropathy and neuropathy. He expressed a great understanding of all of this as did his . Given his situation, we will start him on metformin 1000 b.i.d. He does not show any significant dehydration. There is not much of a chance of study needing contrast and so I do not really have much concern on renal function with this and obviously this would be first line agent of choice for sending him home and this will allow us a chance to see how well he responds to the metformin as far as sugar control, put him on a diabetic diet and obviously because the metformin alone may not be enough, we will put him on supplemental NovoLog. Should he need further treatment beyond the metformin, something along the lines of GLP-1 maybe a good second line agent, that said over time we are all very hopeful that with lifestyle change, he will be able to process in and/or improve his situation dramatically. I discussed postprandial glucose monitoring as a good means to assess how the food affects his body and allow him to learn to stray away from simple starch processed and sugary carbohydrates, and we discussed critical need for exercise as well as ways to work around his limitations with exercise given his knee and back issues such as recumbent bike or water walking in a warm water pool. He expressed good understanding of all of this. He does obviously present risks for coronary disease and given his current lack of a primary care physician, we will be working on setting up a primary care physician for him, but we will also get a lipid panel to better risk assess him given that we do not want him to "fall through the cracks" on vascular risk and also depending on the situation with his perirectal cellulitis versus abscess once feasible it would likely fit for benefit to start him on an 81 mg aspirin. 3. Deep venous thrombosis prophylaxis, Lovenox. 4. Hyponatremia. This is almost certainly pseudohyponatremia from his severe hyperglycemia. 5. Disposition. He will be observed on [facility] under the [facility] hospitalist service. ALEXANDRA
[2016-12-19] MEDS ORDERED: CEFTRIAXONE SOD INJ 1,000 MG in DEXTROSE 5% 50ML 50 ML IV SCH (20:00)
--- NOTE | 2016-12-19 20:06 | EMERGENCY ROOM VISIT NOTE ---
ED Visit Note First contact with patient: 12:33 Chief Complaint: Rectal pain. History of Present Illness: Mr. Mancia is a 41-year-old white male who ambulates into the ED accompanied by his complaining of rectal pain. Historically patient reports on December 13 he had an outpatient hemorrhoid thrombectomy performed by his PCP. He reported that procedure went well and afterward he was feeling better. Then over the last 2 days he reports he is having increasing pain at his surgical site and today he noted leaking pus from his rectum. He contacted his PCP who encouraged in the common to the ED for further evaluation and care. Currently he describes his pain as a constant achy sensation with occasional sharp pain. He rates his discomfort 5/10. The pain is located in the knee rectal area but also in the left gluteal fold. His pain worsens with palpation , sitting on his buttocks and attempting to have a bowel movement. He has not identified any alleviating factors related to the pain. He has not taken any medications for pain prior to arrival at the hospital. Associated with his pain he reports he has been having mild chills but no aissatou fever. He denies skin eruptions, skin color changes, recent buttocks trauma, headaches , dizziness, lightheadedness, upper respiratory tract symptoms, shortness of breath, chest pain, abdominal pain, nausea, vomiting, decreased appetite, back/ flank pain, urinary symptoms, hematuria, diarrhea, constipation, rectal bleeding , black/tarry stools, genital paresthesias, bowel and bladder dysfunction. Review of Systems: As noted above in history of present illness. All body systems were reviewed and found to be negative as noted above. Past Medical History: As previously noted. Current Medications: [place]. Allergies to Medications: Codeine. Social History: Patient is currently employed; he lives with his and feels safe in his home environment; he denies tobacco use. Physical Examination: Vital Signs: Date Time Temp Pulse Resp B/P Pulse Ox O2 Delivery O2 Flow Rate FiO2 12/19/16 15:46 70 18 129/76 97 Room Air 12/19/16 14:58 66 18 125/85 97 Room Air 12/19/16 13:36 73 18 123/69 99 Room Air 12/19/16 12:17 36.5 85 18 121/76 98 Room Air GENERAL: 41-year-old male in mild to moderate distress due to pain, nontoxic- appearing, afebrile and hemodynamically stable. NEUROLOGICAL: Awake, alert and oriented to person, place and time. Answering questions appropriately and following commands. Normal gait. Good hand eye coordination. No focal motor or sensory deficits. SKIN: Warm, dry and pink. HEENT: Atraumatic and normocephalic. PERRLA. Sclera white and conjunctiva pink. No drainage from naris. Oral cavity moist and pink. Pharynx is nonerythematous or edematous. Speech normal. No lymphadenopathy. Trachea midline. No jugular venous distention. BACK: No tenderness over the bony spine. No CVA tenderness. THORAX: Lungs sounds are clear to auscultation and equal bilaterally with symmetrical chest wall. No wheezing, rales or rhonchi. No crepitus, tenderness , subcutaneous air or deformities noted. HEART: Regular rate and rhythm. No gallops, rubs or murmurs are appreciated. ABDOMEN: Flat, soft and nontender. Positive bowel sounds in all quadrants. No guarding, rigidity or organomegaly. RECTAL: No external tags or hemorrhoids. When I did separate his buttocks he had aissatou drainage of purulent material. There was also tenderness over the left gluteus within the gluteal fold but I did not appreciate any induration or fluctuance or erythema. Digital examination was not performed. EXTREMITIES: Moves all extremities well on command and with purpose. All distal neurovascular statuses are intact and equal bilaterally. No calf tenderness or cords. ED Course: Patient is assessed as noted above. Laboratory Testing: Test 12/19/16 12:32 12/19/16 13:20 12/19/16 14:35 12/19/16 15:12 Range/Units White Blood Count 7.59 4.8-10.8 K/uL Red Blood Count 4.44 4.7-6.1 M/uL Hemoglobin 14.3 14.0-18.0 g/dL Hematocrit 41.0 42-52 % Mean Corpuscular Volume 92.3 80-100 fL Mean Corpuscular Hemoglobin 32.2 25-34 pg Mean Corpuscular Hemoglobin Concent 34.9 32-36 g/dl Platelet Count 294 130-400 K/uL Mean Platelet Volume 10.1 7.4-10.4 fL Neutrophils (%) (Auto) 74.8 % Lymphocytes (%) (Auto) 14.2 % Monocytes (%) (Auto) 8.8 % Eosinophils (%) (Auto) 1.8 % Basophils (%) (Auto) 0.3 % Neutrophils # (Auto) 5.67 1.4-6.5 K/uL Lymphocytes # (Auto) 1.08 1.2-3.4 K/uL Monocytes # (Auto) 0.67 0.11-0.59 K/uL Eosinophils # (Auto) 0.14 0-0.5 K/uL Basophils # (Auto) 0.02 0-0.2 K/uL RDW Standard Deviation 42.9 36.4-46.3 fL RDW Coefficient of Variation 12.7 11.5-14.5 % Immature Granulocyte % (Auto) 0.1 % Immature Granulocyte # (Auto) 0.01 0.00-0.02 K/uL Sodium Level 134 136-145 mmol/L Potassium Level 4.1 3.5-5.1 mmol/L Chloride Level 99 98-107 mmol/L Carbon Dioxide Level 28 21-32 mmol/L Anion Gap 7.0 3-11 mmol/L Blood Urea Nitrogen 11 7-18 mg/dl Creatinine 0.91 0.60-1.40 mg/dl Est Creatinine Clear Calc Drug Dose 125.4 ml/min Estimated GFR () 119.2 Estimated GFR (Non- 102.9 BUN/Creatinine Ratio 11.9 10-20 Random Glucose 418 70-99 mg/dl Calcium Level 8.6 8.5-10.1 mg/dl Beta-Hydroxybutyric Acid 4.02 0.2-2.81 mg/dL Prothrombin Time 10.0 9.0-12.0 SECONDS Prothromb Time International Ratio 0.9 0.9-1.1 Bedside Glucose 310 240 70-99 mg/dl Test 12/19/16 15:47 Range/Units Bedside Glucose 243 70-99 mg/dl Gram Stain: Pending Wound Culture: Pending IV Contrast Pelvic CT: Was reviewed by myself and read by the radiologist and shows slight thickening of the tissues immediately left lateral to the anal verge, this finding is consistent with localized perirectal cellulitis. No evidence of drainable abscess or collection was noted. Patient was initially hydrated with normal saline and offered pain medications and refused. He then requested pain medications and received 4 mg of morphine IV for pain. During his stay in the emergency department he was found to have a blood glucose level over 400; after reviewing medical records it was noted that on his last medical admission he was hyperglycemic and a A1C was over 15 indicating he was a diabetic. I did talk to the patient and he reported after his last admission there was an attempt to contact him but he was unavailable and they gave no information to his were made any recommendations for follow-up. At this point in time patient received 5 mg of regular insulin IV and his blood sugar was monitored which brought his serum glucose level down to approximately 240. Additionally after his CT examination he received 3 g of Unasyn IV for antibiotic coverage. Patient's case was reviewed with Dr. Shaikh; we agreed on diagnostic approach, treatment, disposition and plan. Patient's case was consulted with case management and Dr. Rueda, hospitalist , for medical observation/admission. Patient was educated about today's findings. Clinical Impression: Perirectal abscess. New-onset diabetes. Decision-Making: Initially my differential diagnosis I considered rectal abscess , hemorrhoids, rectal perforation and other causes. Disposition and Plan: Patient was brought in the hospital for observation/ admission by Dr. Rueda; please see his notes and orders for final disposition and plan.
[2016-12-19] MEDS: INSULIN ASPART 100 UNITS/ML 3 ML PEN SC SCH (21:29)
[2016-12-19 23:05] VITALS: BP 112/71; PULSE 71; TEMP 36.7; O2SAT 100
[2016-12-20] MEDS: AMPICILLIN/SULBACTAM SOD INJ 1,500 MG in SODIUM CHLORIDE 0.9% 100ML 100 ML IV SCH ×4 (05:36→23:45)
[2016-12-20] MEDS: OXYCODONE/ACETAMINOPHEN 5-325 TAB PO PRN ×4 (05:40→22:10)
[2016-12-20 06:57] VITALS: BP 108/59; PULSE 65; TEMP 36.8; O2SAT 95
[2016-12-20] MEDS: INSULIN ASPART 100 UNITS/ML 3 ML PEN SC SCH ×4 (08:54→21:03)
--- NOTE | 2016-12-20 13:22 | Pre-Operative Consultation ---
History General Date of Service: December 20, 2016. HPI HPI: The patient is a 41 year old male being seen for purulent drainage from an I&D performed by Dr Iqbal on 12/13. He began yesterday having worse pain and continued drainage from the 7 o'clock incision He has not had fevers, chills, or sweats. He has not had any constitutional symptoms otherwise, but was having worse and worse rectal pain. It is much improved today. A CT scan shows cellulitic area without abscess. Historian: patient Procedure Urgency: Acute Risk Assessment Daily beta prabhakar use?: No Problem List Medical Problems: (1) Diabetes mellitus, new onset Status: Acute (2) Thrombosed hemorrhoids Status: Acute (3) Yeast dermatitis of penis Status: Acute Medical & Surgical History Past Medical History: diabetes Past Surgical History: other (I&D perirectal abscess) Family History Family History: diabetes Social History Hx Tobacco Use In Past Year?: Yes (Chewing tobacco) Smoking Status: Former Smoker Drug Use: none Marital status: Housing status: lives with family Occupation status: employed Allergies Allergies: Coded Allergies: Codeine (Verified Allergy, Mild, DELUSIONAL, 12/13/16) Medications Current Inpatient Medications Current Inpatient Medications Medications (Trade) Dose Ordered Sig/Sabina Route Start Time Stop Time Status Last Admin Dose Admin Ioversol (Optiray 320) 111 ml UD PRN IV 12/19/16 13:15 12/23/16 13:14 Enoxaparin Sodium (Lovenox Inj) 40 mg Q24H SQ 12/19/16 15:45 01/18/17 15:44 Future Hold Acetaminophen (Tylenol Tab) 650 mg Q4H PRN PO 12/19/16 15:45 01/18/17 15:44 Al Hydrox/Mg Hydrox/Simethicone (Maalox Max Susp) 15 ml Q4H PRN PO 12/19/16 15:45 01/18/17 15:44 Magnesium Hydroxide (Milk Of Magnesia Susp) 30 ml Q6H PRN PO 12/19/16 15:45 01/18/17 15:44 Polyethylene (Miralax Powder Packet) 17 gm DAILY PRN PO 12/19/16 15:45 01/18/17 15:44 Ondansetron HCl (Zofran Inj) 4 mg Q6H PRN IV 12/19/16 15:45 01/18/17 15:44 Oxycodone/ Acetaminophen (Percocet 5-325mg Tab) 1 tab Q4H PRN PO 12/19/16 15:45 01/02/17 15:44 12/20/16 05:40 1 TAB Morphine Sulfate (MoRPHine SULFATE INJ) 4 mg Q4 PRN IV 12/19/16 15:45 01/02/17 15:44 Metformin HCl (Glucophage Tab) 1,000 mg BIDM PO 12/21/16 08:00 01/20/17 07:59 Insulin Aspart (novoLOG ASPART) SLIDING SCALE G... ACHS SC 12/19/16 21:00 01/18/17 20:59 12/20/16 08:54 4 UNITS Glucose (Glucose 40% Gel) 15-30 GRAMS 15 GRAMS... UD PRN PO 12/19/16 16:00 01/18/17 15:59 Glucose (Glucose Chew Tab) 4-8 Tablets 4 Tabl... UD PRN PO 12/19/16 16:00 01/18/17 15:59 Dextrose (Dextrose 50% 50ML Syringe) 25-50ML OF 50% DW IV FOR... UD PRN IV 12/19/16 16:00 01/18/17 15:59 Glucagon 1 mg 1 mg UD PRN SQ 12/19/16 16:00 01/18/17 15:59 Ampicillin Sodium/ Sulbactam Sodium/ Sodium Chloride (Unasyn Inj/Nss 100ml) 104 ml @ 200 mls/hr Q6H IV 12/19/16 18:00 12/29/16 17:59 12/20/16 11:53 200 MLS/HR Miscellaneous (Iv Fluids Completed) 1 ea PRN PRN N/A 12/19/16 18:45 12/19/17 18:44 Glipizide (Glucotrol Tab) 5 mg BIDM PO 12/20/16 17:45 01/19/17 17:44 Review of Systems Review of Systems Constitutional: denies chills, denies diaphoresis, denies fever Eyes: reports: no symptoms ENT: reports: no symptoms reported Cardiovascular: denies: chest pain, chest pressure, chest tightness, palpitations Respiratory: denies: cough, cyanosis, short of breath, stridor, wheezing Gastrointestinal: denies abdominal pain, denies constipation, denies diarrhea, denies nausea, denies vomiting Genitourinary - Male: reports: no symptoms Musculoskeletal: denies back pain, denies joint pain, denies joint swelling Integumentary: no symptoms reported Neurologic: reports: no symptoms Psychiatric: reports: no symptoms Endocrine: no symptoms Hematologic / Lymphatic: no symptoms Allergic / Immunologic: no symptoms Physical Exam Physical Exam General Appearance: + WD/WN, No distress Ears, Nose, Throat: + normal ENT inspection Neck: No lymphadenophy, No stiffness, No tenderness, No tracheal deviation Respiratory: No decreased breath sounds, No respiratory distress, No rhonchi, No stridor, No wheezing Cardiovascular: No bradycardia, No diastolic murmur, No gallop/S3, No gallop/S4 , No systolic murmur, No tachycardia Abdomen: No abnormal bowel sounds, No distension, No guarding, No hernia, No organomegaly, No tenderness Extremities: No calf tenderness, No deformity, No inflammation, No swelling Neurologic/Psychiatric: No disorientation, No motor deficit/weakness, No sensory deficit Skin Characteristics: + other (7 o'clock incision with some drainage; no fluctuance), No diaphoresis, No jaundice, No pallor, No rash Lymphatic: No abnormal adenopathy Diagnostics Labs Labs Results Past 24 Hours Test 12/19/16 13:20 12/19/16 14:35 12/19/16 15:12 12/19/16 15:47 Range/Units Prothrombin Time 10.0 9.0-12.0 SECONDS Prothromb Time International Ratio 0.9 0.9-1.1 Bedside Glucose 310 240 243 70-99 mg/dl Test 12/19/16 16:15 12/19/16 18:19 12/19/16 20:42 12/20/16 08:02 Range/Units White Blood Count 8.10 4.8-10.8 K/uL Red Blood Count 4.44 4.7-6.1 M/uL Hemoglobin 14.4 14.0-18.0 g/dL Hematocrit 40.9 42-52 % Mean Corpuscular Volume 92.1 80-100 fL Mean Corpuscular Hemoglobin 32.4 25-34 pg Mean Corpuscular Hemoglobin Concent 35.2 32-36 g/dl RDW Standard Deviation 42.7 36.4-46.3 fL RDW Coefficient of Variation 12.6 11.5-14.5 % Platelet Count 289 130-400 K/uL Mean Platelet Volume 9.9 7.4-10.4 fL Triglycerides Level 302 0-150 mg/dl Cholesterol Level 194 0-200 mg/dl HDL Cholesterol 34 mg/dl LDL Cholesterol, Calculated 100 mg/dl VLDL Cholesterol, Calculated 60 mg/dl Cholesterol/HDL Ratio 5.7 Bedside Glucose 282 219 70-99 mg/dl Test 12/20/16 12:09 Range/Units Bedside Glucose 238 70-99 mg/dl Diagnostic Radiology Diagnostic Radiology CT pelvis PELVIS W/IV CONT ONLY (CT) CLINICAL HISTORY: Pain. Rectal pain. Discharge. TECHNIQUE: Transaxial acquisition. Multi axial reformatted images. COMPARISON STUDY: 12/13/2016 FINDINGS: Bowel pattern is nonobstructive. The appendix is normal. Bladder is midline. There is no evidence for an intrapelvic collection or mass. There is slight perianal wall thickening medially left lateral to the anal verge. No evidence for drainable abscess or collection is seen. A component of mild perirectal cellulitis may be present. Inguinal regions are unremarkable. Osseous structures are intact. IMPRESSION: 1. Slight thickening of the tissues immediately left lateral to the anal verge. 2. This is consistent with a mild focal left perirectal infiltrative process, although there is no evidence for drainable abscess or collection. 3. The appearance is most consistent with that of a localized left perirectal cellulitis. 4. Remainder of the pelvic CT is negative Impression Assessment and Plan Assessment and Plan s/p I&D perirectal abscess -con't drainage -no recurrent abscess -dressings -will transfer to Dr Iqbal in AM
[2016-12-20 15:22] VITALS: BP 110/68; PULSE 80; TEMP 36.5; O2SAT 96
--- NOTE | 2016-12-20 18:10 | Progress Note ---
Subjective Date of Service: December 20, 2016. Subjective this pt feels somewhat better has persistent purulent drainage from rectum, has had 3 years of fatigue, increased urination and increased thirst Problem List Medical Problems: (1) Diabetes mellitus, new onset Status: Acute (2) Thrombosed hemorrhoids Status: Acute (3) Yeast dermatitis of penis Status: Acute Review of Systems Constitutional: No chills, No fever, No weakness Respiratory: No cough, No dyspnea on exertion, No shortness of breath Cardiac: No chest pain, No claudication, No edema Abdomen: No diarrhea, No nausea, No pain, No vomiting Neurologic: No memory loss, No weakness Endo: + excessive thirst, + excessive urination, + fatigue Objective Vital Signs Date Time Temp Pulse Resp B/P Pulse Ox O2 Delivery O2 Flow Rate FiO2 12/20/16 15:22 36.5 80 18 110/68 96 Room Air 12/20/16 15:15 Room Air 12/20/16 08:00 Room Air 12/20/16 06:57 36.8 65 19 108/59 95 Room Air 12/19/16 23:15 Room Air 12/19/16 23:05 36.7 71 18 112/71 100 Room Air Physical Exam General Appearance: WD/WN, no apparent distress Neck: supple, no JVD Respiratory/Chest: chest non-tender, lungs clear, normal breath sounds Cardiovascular: regular rate, rhythm, no murmur Abdomen: normal bowel sounds, non tender, soft, + pertinent finding (pt asks for a break from people examining his rectum as surgery was just by) Extremities: no pedal edema, no calf tenderness Laboratory Results Last 24 Hours Test 12/19/16 18:19 12/19/16 20:42 12/20/16 08:02 12/20/16 12:09 Triglycerides Level 302 mg/dl Cholesterol Level 194 mg/dl HDL Cholesterol 34 mg/dl LDL Cholesterol, Calculated 100 mg/dl VLDL Cholesterol, Calculated 60 mg/dl Cholesterol/HDL Ratio 5.7 Bedside Glucose 282 mg/dl 219 mg/dl 238 mg/dl Assessment and Plan 41 M with undiagnosed diabetes, and protocolitis with recent hemorrhoid issue uncontrolled diabetes, A1c 15, but not in acidosis, did have some hydroxybutarate but no AG or decrease in CO2, pt ops for attempt at oral meds but understands may go toward insulin eventually, will start glipizide and cannot start glucophage unitl after 48 hours post iv contrast 12/21 Proctitis, no abscess, on unasyn, surgery is following DVT prevention lovenox
[2016-12-20 22:52] VITALS: BP 113/74; PULSE 78; TEMP 36.9; O2SAT 97
[2016-12-21] MEDS: OXYCODONE/ACETAMINOPHEN 5-325 TAB PO PRN ×5 (02:36→21:49)
[2016-12-21] MEDS: AMPICILLIN/SULBACTAM SOD INJ 1,500 MG in SODIUM CHLORIDE 0.9% 100ML 100 ML IV SCH ×2 (05:42→13:02)
[2016-12-21 07:01] VITALS: BP 104/66; PULSE 66; TEMP 36.6; O2SAT 97
[2016-12-21] MEDS: METFORMIN HCL 500 MG TAB PO SCH ×3 (08:20→17:48)
[2016-12-21] MEDS: INSULIN ASPART 100 UNITS/ML 3 ML PEN SC SCH ×4 (08:25→20:41)
[2016-12-21] MEDS: ENOXAPARIN 40 MG/0.4 ML SYR SQ SCH (08:26)
[2016-12-21 14:14] VITALS: BMI 34.4
[2016-12-21 15:09] VITALS: BP 134/81; PULSE 82; TEMP 36.4; O2SAT 96
--- NOTE | 2016-12-21 16:00 | Surgery Progress Note ---
Surgery Progress Note Date of Service December 21, 2016. Subjective having pain left buttocks, chills, some green rectal drainage Objective Vital Signs: Date Time Temp Pulse Resp B/P Pulse Ox O2 Delivery O2 Flow Rate FiO2 12/21/16 15:09 36.4 82 18 134/81 96 Room Air 12/21/16 07:15 Room Air 12/21/16 07:01 36.6 66 19 104/66 97 Room Air 12/20/16 23:45 Room Air 12/20/16 22:52 36.9 78 16 113/74 97 Room Air Incision(s): clean, dry, no erythema, findings (no induration) Laboratory Results: Results Past 24 Hours Test 12/20/16 17:07 12/20/16 20:33 12/21/16 08:09 12/21/16 11:56 Range/Units Bedside Glucose 223 209 211 259 70-99 mg/dl Assessment & Plan s/p I&D perianal abscess no drainable collections by CT, he feels a a tender lump in left buttocks I cannot appreciate will add clinda, consider EUA if not improving, will keep NPO after midnight
[2016-12-21] MEDS ORDERED: CLINDAMYCIN IV 900 MG in DEXTROSE 5% ADD-VANTAGE 100ML 100 ML IV SCH (16:15)
[2016-12-21] MEDS ORDERED: PIPERACILL/TAZOBAC CONSULT ACTIVE PRN (16:30)
[2016-12-21] MEDS ORDERED: PIPERACILL/TAZOBAC IV 4.5 GM in DEXTROSE 5% 100ML IV ONE (16:45)
[2016-12-21] MEDS ORDERED: INSULIN GLARGINE SOLOSTAR 100 UNITS/ML 3 ML PEN SC SCH (21:00)
[2016-12-21] MEDS: PIPERACILL/TAZOBAC IV 4.5 GM in DEXTROSE 5% 100ML IV SCH (22:28)
[2016-12-21 23:46] VITALS: BP 120/75; PULSE 76; TEMP 36.7; O2SAT 97
--- NOTE | 2016-12-21 23:58 | Hospitalist Progress Note ---
Hospitalist Progress Note Date of Service December 21, 2016. Subjective Pt evaluation today including: conversation w/ patient, conversation w/ family , physical exam Rectal pain about the same. Had some lower abd pain and several episodes of loose stools today. Did start metformin this AM. Constitutional: No fever Respiratory: No shortness of breath Cardiovascular: No chest pain All Other Systems: Reviewed and Negative Objective Vital Signs Date Time Temp Pulse Resp B/P Pulse Ox O2 Delivery O2 Flow Rate FiO2 12/21/16 23:46 36.7 76 16 120/75 97 Room Air 12/21/16 15:30 Room Air 12/21/16 15:09 36.4 82 18 134/81 96 Room Air 12/21/16 07:15 Room Air 12/21/16 07:01 36.6 66 19 104/66 97 Room Air Physical Exam General Appearance: WD/WN, no apparent distress Eyes: normal inspection, sclerae normal ENT: hearing grossly normal Neck: trachea midline Respiratory/Chest: lungs clear, normal breath sounds, no respiratory distress, no accessory muscle use Cardiovascular: regular rate, rhythm, no edema, no gallop, no murmur Abdomen: normal bowel sounds, non tender, soft, no organomegaly, no pulsatile mass Extremities: non-tender, no pedal edema, no calf tenderness Neurologic/Psychiatric: alert, normal mood/affect, oriented x 3 Skin: normal color, warm/dry, no rash Laboratory Results Last 24 Hours Test 12/21/16 08:09 12/21/16 11:56 12/21/16 17:10 12/21/16 20:37 Bedside Glucose 211 mg/dl 259 mg/dl 205 mg/dl 281 mg/dl Assessment and Plan 41 M with undiagnosed diabetes, and protocolitis with recent hemorrhoid issue Uncontrolled diabetes mellitus II, A1c 15, but not in acidosis, did have some hydroxybutarate but no AG or decrease in CO2-pt initially declining basal insulin but discussed with him importance of this given persistent hyperglycemia and need for pancreatic rest. -he is agreeable to start Lantus today--> 8 units this evening -stop glipizide as not needed while on insulin -reduce dose of metformin from 1000mg bid to 500mg once daily due to GI upset and diarrhea -will need Ophtho as outpt -will need ACEI to start upon discharge -DM testing supplies will need to be Rxd and CDE appreciated -needs PCP for close follow up after discharge Proctitis, no abscess, on unasyn now switched to Zosyn today by Surgery, surgery is following -plan for possible exploration under anesthesia tomorrow if not improved DVT prevention lovenox
[2016-12-22] MEDS ORDERED: NURSING VERBAL MED ORDER ONE (05:00)
[2016-12-22] MEDS: PIPERACILL/TAZOBAC IV 4.5 GM in DEXTROSE 5% 100ML IV SCH (06:35)
[2016-12-22] MEDS: INSULIN ASPART 100 UNITS/ML 3 ML PEN SC SCH ×2 (06:39→13:35)
[2016-12-22 07:14] VITALS: BP 118/74; PULSE 61; TEMP 36.6; O2SAT 97
[2016-12-22 08:04] LABS: BASO % 0.7 %; BASO ABS # 0.05 K/uL (0-0.2); COMPLETE YES; EOS % 3.3 %; HEMATOCRIT 44.6 % (42-52); IG% 0.1 %; LYMPH % 28.7 %; LYMPH ABS # 2.08 K/uL (1.2-3.4); MEAN CELL VOLUME 94.3 fL (80-100); MEAN CORPUSCULAR HEMOGLOBIN 31.9 pg (25-34); MEAN CORPUSCULAR HGB CONC 33.9 g/dl (32-36); MEAN PLATELET VOLUME 9.9 fL (7.4-10.4); MONO % 8.5 %; NEUT % 58.7 %; PLATELET COUNT 332 K/uL (130-400); RED BLOOD COUNT 4.73 M/uL (4.7-6.1); WHITE BLOOD COUNT 7.26 K/uL (4.8-10.8)
[2016-12-22] MEDS ORDERED: METFORMIN HCL 500 MG TAB PO SCH (08:30)
--- NOTE | 2016-12-22 08:47 | Surgery Progress Note ---
Surgery Progress Note Date of Service December 22, 2016. Subjective no major changes. still having some discomfort. still having drainage. states pain is def not as bad as his first admission. no fevers. Objective Vital Signs: Date Time Temp Pulse Resp B/P Pulse Ox O2 Delivery O2 Flow Rate FiO2 12/22/16 07:54 Room Air 12/22/16 07:14 36.6 61 17 118/74 97 12/22/16 01:30 Room Air 12/21/16 23:46 36.7 76 16 120/75 97 Room Air 12/21/16 15:30 Room Air 12/21/16 15:09 36.4 82 18 134/81 96 Room Air General Appearance: no apparent distress Head: normocephalic, atraumatic Neck: no adenopathy Respiratory/Chest: no respiratory distress, no accessory muscle use Abdomen: non tender, soft, + pertinent finding (rectum without induration or palpable abcess. still with some purulent drainage. expected discomfort with palpation. ) Laboratory Results: Results Past 24 Hours Test 12/21/16 11:56 12/21/16 17:10 12/21/16 20:37 12/22/16 06:32 Range/Units Bedside Glucose 259 205 281 233 70-99 mg/dl Test 12/22/16 07:28 Range/Units White Blood Count 7.26 4.8-10.8 K/uL Red Blood Count 4.73 4.7-6.1 M/uL Hemoglobin 15.1 14.0-18.0 g/dL Hematocrit 44.6 42-52 % Mean Corpuscular Volume 94.3 80-100 fL Mean Corpuscular Hemoglobin 31.9 25-34 pg Mean Corpuscular Hemoglobin Concent 33.9 32-36 g/dl Platelet Count 332 130-400 K/uL Mean Platelet Volume 9.9 7.4-10.4 fL Neutrophils (%) (Auto) 58.7 % Lymphocytes (%) (Auto) 28.7 % Monocytes (%) (Auto) 8.5 % Eosinophils (%) (Auto) 3.3 % Basophils (%) (Auto) 0.7 % Neutrophils # (Auto) 4.26 1.4-6.5 K/uL Lymphocytes # (Auto) 2.08 1.2-3.4 K/uL Monocytes # (Auto) 0.62 0.11-0.59 K/uL Eosinophils # (Auto) 0.24 0-0.5 K/uL Basophils # (Auto) 0.05 0-0.2 K/uL RDW Standard Deviation 44.6 36.4-46.3 fL RDW Coefficient of Variation 12.9 11.5-14.5 % Immature Granulocyte % (Auto) 0.1 % Immature Granulocyte # (Auto) 0.01 0.00-0.02 K/uL Assessment & Plan migue-rectal abcess at this point, ct shows no drainable fluid collection, wbc normal, afebrile , and abcess cavity actively draining-- not really much more to add surgically. changed antibiotic to zosyn per pharm rec's. will cont to follow. ok from my standpoint for d/c on antibiotics will f/u in 1 week. if no better , will prob be forced to perform an exam under anesthesia. pt agreeable to plan.
[2016-12-22 08:49] LABS: BUN/CREATININE RATIO 12.3 (10-20); CALCIUM 8.9 mg/dl (8.5-10.1); CREATININE 0.97 mg/dl (0.60-1.40); POTASSIUM 3.8 mmol/L (3.5-5.1)
[2016-12-22] MEDS: ENOXAPARIN 40 MG/0.4 ML SYR SQ SCH (09:09)
[2016-12-22 12:00] VITALS: BMI 34.4
[2016-12-22] MEDS ORDERED: INSDGIPEN SC (13:58)
[2016-12-22] MEDS ORDERED: AMOX875T PO (13:58)
[2016-12-22] MEDS ORDERED: OXYC-57 PO (13:58)
[2016-12-22] MEDS ORDERED: GLC500 PO (13:58)
--- NOTE | 2016-12-22 14:05 | Discharge Instructions ---
Discharge Instructions Date of Service December 22, 2016. Admission Reason for Admission: Rectal abscess/Cellulitis Discharge Discharge Diagnosis / Problem: Rectal abscess/cellulitis, Diabetes mellitus type II Discharge Goals Goal(s): Improve disease control, Diagnostic testing, Therapeutic intervention Activity Recommendations Activity Limitations: resume your previous activity Exercise/Sports Limitations: as tolerated Shower/Bathe: no limitations Driving or Machine Use: no driving while taking oxycodone . Instructions / Follow-Up Instructions / Follow-Up You were admitted due to an infection in the rectal area. You were also diagnosed with diabetes mellitus type II with significantly elevated blood sugars. You were treated with antibiotics for the infection and insulin as well as metformin for your diabetes. The General Surgeon thinks that the infection is draining appropriately, and you should continue the antibiotics and follow up with Dr. Iqbal in the office in 1 week. Please make an appointment with a Family doctor at [facility] within 1 week for follow up on your diabetes and general health. You will need to see an Telecommunications Operator to check your eyes for damage from your diabetes. You should check your feet daily for cuts or wounds as you can develop numbness of the feet from diabetes. You will also need to start on a medication called lisinopril after seen by your new Family doctor to help protect your kidneys from damage from the diabetes. Current Hospital Diet Patient's current hospital diet: Diabetes Type 2 Diet Discharge Diet Recommended Diet: Diabetes Type 2 Diet Procedures Procedures Performed: CT pelvis Pending Studies Studies pending at discharge: no Laboratory Results Hemoglobin A1c Test 12/13/16 03:00 Range/Units Estimated Average Glucose 407 mg/dl Hemoglobin A1c 15.8 H 4.5-5.6 % Lipid Panel Test 12/19/16 18:19 Range/Units Triglycerides Level 302 H 0-150 mg/dl Cholesterol Level 194 0-200 mg/dl HDL Cholesterol 34 mg/dl Cholesterol/HDL Ratio 5.7 LDL Cholesterol, Calculated 100 mg/dl Medical Emergencies . Who to Call and When: Medical Emergencies: If at any time you feel your situation is an emergency, please call 911 immediately. . Non-Emergent Contact Non-Emergency issues call your: Primary Care Provider, Surgeon Call Non-Emergent contact if: you have a fever, your pain is not controlled, your pain is worsening, your pain is unusual for you, wound has increased drainage, wound has increased redness, wound has increased pain, you have any medication questions . . "Provider Documentation" section prepared by Nupur Martinez. . VTE Core Measure Inpt VTE Proph given/why not?: Enoxaparin (Lovenox)SQ [place] Drug Monitoring Program Search Results: patient reviewed within database, no issues identified
[2016-12-22 14:11] VITALS: BP 118/74; PULSE 61; TEMP 36.6; O2SAT 97
[2016-12-25 16:00] VITALS: Ht 175.3 cm; Wt 105.7 kg
--- NOTE | 2017-01-11 14:49 | Discharge Summary ---
Discharge Summary Date of Service December 22, 2016. Discharge Summary Admission Date: December 19, 2016 at 17:40 Discharge Date: December 22, 2016 Discharge Disposition: Home Principal Diagnosis: Rectal abscess Problems/Secondary Diagnoses: New onset Diabetes mellitus II with hyperglycemia External hemorrhoid Procedures: CT pelvis PELVIS W/IV CONT ONLY (CT) CLINICAL HISTORY: Pain. Rectal pain. Discharge. TECHNIQUE: Transaxial acquisition. Multi axial reformatted images. COMPARISON STUDY: 12/13/2016 FINDINGS: Bowel pattern is nonobstructive. The appendix is normal. Bladder is midline. There is no evidence for an intrapelvic collection or mass. There is slight perianal wall thickening medially left lateral to the anal verge. No evidence for drainable abscess or collection is seen. A component of mild perirectal cellulitis may be present. Inguinal regions are unremarkable. Osseous structures are intact. IMPRESSION: 1. Slight thickening of the tissues immediately left lateral to the anal verge. 2. This is consistent with a mild focal left perirectal infiltrative process, although there is no evidence for drainable abscess or collection. 3. The appearance is most consistent with that of a localized left perirectal cellulitis. 4. Remainder of the pelvic CT is negative Consultations: General Surgery Medication Reconciliation New Medications: Insulin Glargine (Lantus Solostar) 100 Unit/Ml Inj 10 UNIT SC HS, #1 BOX Metformin HCl (Metformin HCl) 500 Mg Tab 500 MG PO QDB, #60 TAB for one week then increase to twice daily Oxycodone/Acetaminophen 5MG/325MG (Percocet 5MG/325MG) Tab 1 TAB PO Q4H PRN for moderate pain, #20 TAB PAIN Discontinued Medications: Hydrocodone/Acetaminophen 7.5MG/325MG ([place] 7.5MG/325MG) Tab 1 TAB PO Q4H PRN for Pain, #30 TAB PRN PAIN Referrals At Discharge Follow up Referrals: Surgery Referral - Within 1 Week with Jean Carlos Iqbal D.O. Discharge Exam DOing better, still some drainage from rectum expressed on exam by Surgery today. Glucose better controlled, pt understands importance of treating DM with insulin and knows how to inject himself and check his glucose. He is afebrile. Physical Exam General Appearance: WD/WN, no apparent distress, overweight Eyes: normal inspection, sclerae normal ENT: hearing grossly normal Neck: trachea midline Respiratory/Chest: lungs clear, normal breath sounds, no respiratory distress, no accessory muscle use Cardiovascular: regular rate, rhythm, no edema, no gallop, no murmur Abdomen: normal bowel sounds, non tender, soft, no organomegaly, no pulsatile mass, rectal exam deferred Extremities: non-tender, no pedal edema, no calf tenderness Neurologic/Psychiatric: alert, normal mood/affect, oriented x 3 Skin: normal color, warm/dry, no rash Review of Systems: Constitutional: No fever Eyes: No problem reported ENT: No problem reported Respiratory: No problem reported Cardiovascular: No problem reported Abdomen: + pain (in rectal area) Genitourinary - Male: No problem reported Neurologic: No problem reported Psychiatric: No problem reported Endocrine: + excessive thirst, + excessive urination Hematologic / Lymphatic: No problem reported Integumentary: No problem reported Hospital Course 41 M with newly diagnosed diabetes, and protocolitis with recent hemorrhoid thrombosed and I&D'd, now here with rectal abscess and hyperglycemia Uncontrolled diabetes mellitus II, A1c 15, but not in acidosis, did have some hydroxybutarate but no AG or decrease in CO2-pt initially declining basal insulin but discussed with him importance of this given persistent hyperglycemia and need for pancreatic rest. -he is agreeable to continuing Lantus upon discharge--> continue Lantus 10 units daily and f/u with PCP arranged -stop glipizide as not needed while on insulin -reduce dose of metformin from 1000mg bid to 500mg once daily due to GI upset and diarrhea -will need Ophtho as outpt -will start ACEI upon discharge for renal protection -will need statin too but will allow PCP to prescribe as I don't want to start too many new meds at once -DM testing supplies Rxd and CDE appreciated -needs PCP for close follow up after discharge Proctitis, no definite abscess but with purulent drainage on exam as per Surgery , no need for surgery, received unasynand then switched to Zosyn. Had improvement in pain. Discharge to home on Augmentin and f/u with Surgery in office DVT prevention lovenox Total Time Spent: Greater than 30 minutes This includes examination of the patient, discharge planning, medication reconciliation, and communication with other providers. Discharge Instructions Please refer to the electronic Patient Visit Report (Discharge Instructions) for additional information. Follow-Up PCP within 1 week General Surgery in 1 week Additional Copies To [facility]
[2017-06-11] MEDS ORDERED: AMOX875T PO (15:06)
[2017-06-11] MEDS ORDERED: RXC5 PO (15:06)
[2017-06-11] MEDS ORDERED: LACTCHW3 PO (15:06)
[2017-06-12] MEDS ORDERED: CEPH500C PO (15:42)
== END 2016-12-22 14:31 | disposition home or self-care (01) | DRG 394 ==
LOC: ENRESERVDT → ENRESERVTM → C.EDB 12:16 → C.MSN 15:49 → OBSVTOIN 17:40
PROVIDERS: ADMIT Family Medicine; ATTEND Family Medicine
DX: K61.1 Rectal abscess (principal); K51.314 Ulcerative (chronic) rectosigmoiditis with abscess; E87.1 Hypo-osmolality and hyponatremia; E11.65 Type 2 diabetes mellitus with hyperglycemia; Z87.891 Personal history of nicotine dependence

== ENCOUNTER 2017-04-14 12:16 | Emergency (ER) | payer OTHER ==
[~2017-04-14] VITALS: Ht 175.3 cm; Wt 114.8 kg
[~2017-04-14 12:16] MED LIST changes: -ACET650T97 PO; -DFL100 PO; +GLC500 PO; -HYDR-3983 PO; +INSDGIPEN SC; +OXYC-57 PO; -SULF800T23 PO
[2017-04-14 12:22] VITALS: TEMP 36.4; Ht 175.3 cm; Wt 114.8 kg
[2017-04-14] MEDS ORDERED: EPINEPHRINE ADULT AUTO-INJECT 0.3 MG SYR IM SCH (13:15)
[2017-04-14] MEDS ORDERED: FAMOTIDINE 20 MG TAB PO ONE (13:15)
[2017-04-14] MEDS ORDERED: INSDGIPEN SC (13:35)
[2017-04-14] MEDS ORDERED: GLC/500 PO (13:35)
--- NOTE | 2017-04-14 13:46 | EMERGENCY ROOM VISIT NOTE ---
History Report prepared by Janice: Karen Faye Under the Supervision of: Dr. Chicho Woo M.D. First contact with patient: 12:30 Chief Complaint: ALLERGIC REACTION Stated Complaint: BEE STING History of Present Illness The patient is a 41 year old white male with a past medical history of diabetes , bee sting allergy who presents to the ED with a cc of persistent allergic reaction beginning 50 minutes ago. Positive finger pain, headache. Negative SOB , nausea, vomiting, diarrhea. He is unsure of his tetanus status. He does chew tobacco. Source of History: patient Onset: 50 minutes ago Position: other (global) Quality: other (allergic reaction) Timing: other (persistent) Associated Symptoms: + headache, No SOB, No nausea, No vomiting, No diarrhea Note: Pt reports finger pain. Review of Systems See HPI for pertinent positives and negatives. A total of ten systems were reviewed and were otherwise negative. Past Medical & Surgical Medical Problems: (1) Cellulitis (2) Diabetes (3) Hyperglycemia (4) Rectal abscess (5) Rectal or anal pain (6) Uncontrolled diabetes mellitus Family History No pertinent family history stated. Social History Smoking Status: Former Smoker Drug Use: none Marital Status: Housing Status: lives with significant other Occupation Status: employed Current/Historical Medications Scheduled Epinephrine (Epipen 2-Kaiden), 1 DOSE IM DIRECTED Insulin Glargine (Lantus Solostar), 5 UNITS SC QAM Metformin Hcl (Glucophage), 500 MG PO BID Prednisone (Prednisone), 50 MG PO DAILY Allergies Coded Allergies: Codeine (Verified Allergy, Mild, DELUSIONAL, 12/13/16) Physical Exam Vital Signs Date Time Temp Pulse Resp B/P (MAP) Pulse Ox O2 Delivery O2 Flow Rate FiO2 04/14/17 14:12 75 20 144/77 95 04/14/17 13:36 86 21 04/14/17 13:31 78 21 95 Room Air 04/14/17 13:26 82 04/14/17 13:26 83 18 97 Room Air 04/14/17 12:51 96 Room Air 04/14/17 12:22 36.4 85 22 133/83 96 Room Air Physical Exam GENERAL: Awake, alert, well-appearing, NAD HENT: Normocephalic, atraumatic. No posterior pharynx swelling. EYES: Normal conjunctiva. Sclera non-icteric. NECK: Supple. No nuchal rigidity. FROM. No stridor. RESPIRATORY: CTAB, no rhonchi, wheezing, crackles CARDIAC: RRR, no MRG ABDOMEN: Soft, NTND, BS+ MSK: No chest wall TTP, no LE edema. Tenderness over the dorsal aspect of the right 4th middle phalanx and distal phalanx without any swelling, neurologically intact, good cap refill. NEURO: GCS 15, CN 2-12 intact, moves all 4s on command SKIN: No rash or jaundice noted. Medical Decision & Procedures Medications Administered Medications (Trade) Dose Ordered Sig/Sabina Route Start Time Stop Time Status Last Admin Dose Admin Famotidine (Pepcid Tab) 40 mg NOW ONCE PO 04/14/17 13:15 04/14/17 13:16 DC 04/14/17 13:11 40 MG Epinephrine (Epipen) 0.3 mg NOW IM 04/14/17 13:15 04/14/17 14:39 DC 04/14/17 13:13 0.3 MG Diphenhydramine HCl (Benadryl Cap) 25 mg NOW ONCE PO 04/14/17 13:15 04/14/17 13:16 DC 04/14/17 13:10 25 MG Prednisone (PredniSONE TAB) 40 mg STK-MED ONCE .ROUTE 04/14/17 13:08 04/14/17 13:09 DC 04/14/17 13:12 40 MG Prednisone (PredniSONE TAB) 10 mg STK-MED ONCE .ROUTE 04/14/17 13:09 04/14/17 13:10 DC 04/14/17 13:12 10 MG ED Course 1254: The patient was evaluated in room A11B. A complete history and physical exam was performed. 1355: I reevaluated the patient. I discussed results and discharge instructions : he verbalized understanding and agreement. The patient is ready for discharge. Medical Decision Differential diagnosis: Etiologies such as allergic reaction, anaphylaxis, urticaria, Delvalle-Jose syndrome, toxic epidermal necrolysis, erythema multiforme, cellulitis, as well as others were entertained. The patient is a 41 year old white male with a past medical history of diabetes , bee sting allergy who presents to the ED with a cc of persistent allergic reaction beginning 50 minutes ago. Patient was seen and evaluated at the bedside. Patient without any respiratory distress, handling secretions without any nausea vomiting or diarrhea. Patient' s pulse signs normal. Patient does not have any evidence of urticaria. Patient was given medications. Patient was reassessed and feeling improved w/o SOB, wheezing, throat swelling. Tolerated PO. Patient was given strict follow-up, discharge, and return for cautions. Patient agreed with plan of care patient was safely discharged home. Medication Reconcilliation Current Medication List: was personally reviewed by me Blood Pressure Screening Patient's blood pressure: Normal blood pressure Blood pressure disposition: Did not require urgent referral Impression Primary Impression: Allergic reaction Scribe Attestation The scribe's documentation has been prepared under my direction and personally reviewed by me in its entirety. I confirm that the note above accurately reflects all work, treatment, procedures, and medical decision making performed by me. Departure Information Dispostion Home / Self-Care Prescriptions Epinephrine (EPIPEN 2-KAIDEN) 0.3 Mg Inj 1 DOSE IM DIRECTED, #2 UNIT Prov: Chicho Woo M.D. 04/14/17 Prednisone (PREDNISONE) 50 Mg Tab 50 MG PO DAILY for 4 Days, TAB Prov: Chicho Woo M.D. 04/14/17 Referrals No Doctor, Assigned (PCP) Patient Instructions ED Allergic Reaction Local Other, My [facility] Additional Instructions Please return to the emergency department if you have worsening or recurrent symptoms not amenable to at-home treatment. Please call for a follow-up appointment with her primary care physician. Please take your medications as prescribed. If you have other concerns and/or complaints please feel free to also call your primary care physician's office or return the ED for further evaluation, management, and treatment. Return if you have worsening SOB, throat swelling, inability to swallow or handling secretions. If in doubt, use epi pen. Take medications as prescribed. Take steroids with food. You may take 600 mg Ibuprofen every 6 hours as needed for pain with food for no more than 2 consecutive days. You may take tylenol 1000mg every 6 hours as needed for pain. You may take motrin and tylenol separately or at the same time. You have been examined and treated today on an emergency basis only. This is not a substitute for, or an effort to provide, complete comprehensive medical care. It is impossible to recognize and treat all injuries or illnesses in a single emergency department visit. It is therefore important that you follow up closely with [facility]. Call as soon as possible for an appointment. Thank you for your time and consideration. I look forward to speaking with you again soon. Please don't hesitate to call us if you have any questions. Work Instructions Return To Work: 1 day Problem Qualifiers Primary Impression: Allergic reaction Encounter type: initial encounter Qualified Codes: T78.40XA - Allergy, unspecified, initial encounter
[2017-04-14] MEDS ORDERED: PRED50TA PO (13:57)
[2017-04-14] MEDS ORDERED: EPP3/2 IM (13:57)
[2017-04-14 14:12] VITALS: BP 144/77; PULSE 75; O2SAT 95
== END 2017-04-14 14:13 | disposition home or self-care (01) ==
LOC: C.EDB 12:17 → C.EDA 14:13
DX: T63.441A Toxic effect of venom of bees, accidental (unintentional), initial encounter (principal); F17.220 Nicotine dependence, chewing tobacco, uncomplicated; E11.9 Type 2 diabetes mellitus without complications; Z79.4 Long term (current) use of insulin

== ENCOUNTER → 2017-08-10 | Outpatient (CLI) | payer OTHER ==
[~2017-08-10] MED LIST changes: +CEPH500C PO; +EPP3/2 IM; +GLC/500 PO; -GLC500 PO; +LACTCHW3 PO; -OXYC-57 PO; +RXC5 PO
[2017-08-10 17:37] LABS: ALBUMIN 3.8 gm/dl (3.4-5.0); ALT/SGPT 50 U/L (12-78); BLOOD UREA NITROGEN 17 mg/dl (7-18); CALCIUM 9.1 mg/dl (8.5-10.1); CARBON DIOXIDE 27 mmol/L (21-32); CHOLESTEROL 170 mg/dl (0-200); CREATININE 1.05 mg/dl (0.60-1.40); GLUCOSE 136 mg/dl (70-99); POTASSIUM 4.3 mmol/L (3.5-5.1); SODIUM 135 mmol/L (136-145)
[2017-08-10 17:47] LABS: ALKALINE PHOSPHATASE 47 U/L (45-117); AST/SGOT 18 U/L (15-37); LDL CHOLESTEROL CALCULATED 87 mg/dl; TOTAL PROTEIN 7.8 gm/dl (6.4-8.2)
[2017-08-11 06:18] LABS: HEMOGLOBIN A1C 7.2 % (4.5-5.6)
== END | disposition home or self-care (01) ==
LOC: C.LABPVFM 10:56
PROVIDERS: ATTEND Neuromusculoskeletal Medicine & OMM
DX: Z00.00 Encounter for general adult medical examination without abnormal findings (principal); E11.9 Type 2 diabetes mellitus without complications; E66.9 Obesity, unspecified

== ENCOUNTER → 2017-08-12 | Outpatient (CLI) | payer OTHER | END | disposition home or self-care (01) | LOC: C.LABPVFM 14:03 | PROVIDERS: ATTEND Neuromusculoskeletal Medicine & OMM | DX: Z00.00 Encounter for general adult medical examination without abnormal findings (principal); E66.9 Obesity, unspecified; N52.9 Male erectile dysfunction, unspecified ==

== ENCOUNTER → 2017-09-10 | Day surgery (SDC) | payer OTHER ==
[2017-09-02 10:41] VITALS: Ht 175.3 cm; Wt 118.2 kg
[~2017-09-10] VITALS: Ht 175.3 cm; Wt 118.2 kg
[~2017-09-10] MED LIST changes: +BENZ1CAP90 PO; +CEFAZOLIN 2000MG IV PUSH 15 ML IV SCH; -CEPH500C PO; +FLUT50SP45; -INSDGIPEN SC; +INSU100I23 SC; +LACTATED RINGER'S 1000ML 1,000 ML IV SCH; -LACTCHW3 PO; +NIAC500T11 PO; +PHEN-905 PO; +PSEU60TA80 PO; -RXC5 PO; +VITAMIN B12 PO
== END | disposition home or self-care (01) ==
LOC: EDSTATUS 11:30 → C.PAT 13:57
PROVIDERS: ATTEND Surgery
DX: D17.22 Benign lipomatous neoplasm of skin and subcutaneous tissue of left arm (principal); Z53.9 Procedure and treatment not carried out, unspecified reason

== ENCOUNTER 2017-11-09 03:27 | Emergency (ER) | payer OTHER ==
[~2017-11-09] VITALS: Ht 175.3 cm; Wt 120.0 kg
[~2017-11-09 03:27] MED LIST changes: -CEFAZOLIN 2000MG IV PUSH 15 ML IV SCH; -LACTATED RINGER'S 1000ML 1,000 ML IV SCH
[2017-11-09 03:40] VITALS: TEMP 36.7
[2017-11-09] MEDS ORDERED: CEFTRIAXONE SOD INJ 1 GM ADDVIAL IV STA (03:55)
[2017-11-09] MEDS ORDERED: HYDROmorphone INJ 2 MG/ML SYR/VIAL IV STA (03:55)
[2017-11-09] MEDS ORDERED: SODIUM CHLORIDE 0.9% 1000ML 1,000 ML IV STA (03:55)
[2017-11-09] MEDS ORDERED: ONDANSETRON INJ 2 MG/ML 2 ML VIAL IV STA (03:55)
[2017-11-09 04:10] VITALS: Ht 175.3 cm; Wt 120.0 kg
[2017-11-09] MEDS ORDERED: OPTIRAY 320 IV PRN (04:15)
[2017-11-09] MEDS ORDERED: VANCOMYCIN IV 2,500 MG in SODIUM CHLORIDE 0.9% 500ML 500 ML IV STA (04:20)
[2017-11-09] MEDS ORDERED: EPP3/2 IM (04:27)
[2017-11-09] MEDS ORDERED: VANCOMYCIN CONSULT ACTIVE PRN (04:30)
[2017-11-09 04:38] LABS: INR 0.9 (0.9-1.1); PTT PATIENT 27.3 SECONDS (21.0-31.0)
[2017-11-09 04:48] LABS: BASO % 0.3 %; BASO ABS # 0.03 K/uL (0-0.2); EOS % 1.9 %; EOS ABS # 0.22 K/uL (0-0.5); HEMATOCRIT 43.8 % (42-52); HEMOGLOBIN 15.2 g/dL (14.0-18.0); IG# 0.02 K/uL (0.00-0.02); LYMPH % 15.8 %; LYMPH ABS # 1.78 K/uL (1.2-3.4); MEAN CELL VOLUME 91.3 fL (80-100); MEAN CORPUSCULAR HEMOGLOBIN 31.7 pg (25-34); MEAN CORPUSCULAR HGB CONC 34.7 g/dl (32-36); MONO % 8.6 %; MONO ABS # 0.97 K/uL (0.11-0.59); NEUT % 73.2 %; NEUT ABS # 8.28 K/uL (1.4-6.5); PLATELET COUNT 289 K/uL (130-400)
[2017-11-09 04:50] LABS: ALBUMIN 3.3 gm/dl (3.4-5.0); CREATININE 1.21 mg/dl (0.60-1.40); POTASSIUM 4.1 mmol/L (3.5-5.1)
[2017-11-09 04:52] LABS: TOTAL PROTEIN 7.7 gm/dl (6.4-8.2)
[2017-11-09] MEDS ORDERED: DiphenhydrAMINE HCL 50 MG/ML VIAL IV STA (05:57)
[2017-11-09] MEDS ORDERED: KETOROLAC TROMETHAMINE 30 MG/ML VIAL IV STA (05:57)
[2017-11-09] MEDS ORDERED: METOCLOPRAMIDE HCL INJ 5 MG/ML 2 ML VIAL IV STA (05:57)
--- NOTE | 2017-11-09 06:27 | DIAGNOSTIC IMAGING REPORT ---
CT OF THE PELVIS WITH IV CONTRAST CLINICAL HISTORY: Rectal pain. Recent abscess drainage. COMPARISON STUDY: CT of the pelvis June 09, 2017. TECHNIQUE: Axial images of the pelvis were obtained following intravenous injection of 93 cc of Optiray 320 IV. FINDINGS: Note is made of moderate inflammation within the medial left buttock. There is an associated cutaneous 2 x 2 cm rim enhancing fluid collection as well as an adjacent 4 x 1.1 cm enhancing fluid collection. This could reflect two adjacent abscesses or one contiguous abscess. There is a suspected left perianal fistula which is suboptimally assessed by CT. This may be transsphincteric. This extends toward the left aspect of the anus and is similar in appearance to CT of June 09, 2017. There are no suspicious osseous lesions. There are sigmoid diverticulosis without evidence for acute diverticulitis. Caliber of visualized small and large bowel is normal. IMPRESSION: Inflammation within the medial left buttock with 2 adjacent abscesses which measure 4 x 1.1 and 2 x 2 cm. Alternatively, this could reflect one contiguous abscess. Associated suspected left-sided perianal fistula, which may be transsphincteric, which is suboptimally assessed by CT. Electronically signed by: Lalito Cardona M.D. 11/09/2017 6:26 AM Dictated Date/Time: 11/09/2017 6:18 AM
[2017-11-09 09:32] VITALS: BP 116/74; PULSE 79; O2SAT 97
--- NOTE | 2017-11-09 13:40 | Surgery Consultation ---
Consultation Date of Consultation: Nov 09, 2017. LATE ENTRY, PATIENT SEEN AT 7:30 AM Attending Physician: Dr. Cueto Reason for Consultation: Perirectal abscess History of Present Illness 42 year-old male with recurrent perirectal abscess starting September of last year. Last incision and drainage at our facility was in June [address] Rice. Recent evaluation by colorectal surgeon (Dr. Valles) with outpatient fistulotomy on October 19. Presented to emergency room with complaint of increasing rectal pain and drainage. States the pain increased in nature the last 24 hours. Last bowel movement was yesterday. No seton was placed during last procedure. Leukocytosis of 11.3K. CT scan of pelvis showing inflammation within the medial left buttock with 2 adjacent abscesses which measure 4 x 1.1 and 2 x 2 cm. Alternatively, this could reflect one contiguous abscess. Associated suspected left-sided perianal fistula, which may be transsphincteric, which is suboptimally assessed by CT. Past Medical/Surgical History Medical Problems: 1. Perirectal abscess , recurrent 2. Perirectal fistula 3. Diabetes mellitus 4. Thrombosed hemorrhoids 5. Yeast Dermatitis of Penis Surgical History: 1. Fistulotomy October 19 2. Multiple I&D perirectal abscess starting last September Family History No pertinent family history Social History Smoking Status: Never Smoker Drug Use: none Marital Status: Housing Status: lives with significant other Occupation Status: employed Allergies Coded Allergies: BEE STING (Verified Allergy, Severe, ANAPHYLAXIS, 11/09/17) Home Medications Scheduled Insulin Glargine (Basaglar Kwikpen), 5 UNITS SC DAILY Metformin Hcl (Glucophage), Unknown Dose PO BIDM Scheduled PRN Epinephrine (Epipen), 0.3 MG IM UD PRN for Allergic Reaction Fluticasone Propionate (Nasal) (Allergy Nasal [place] 24 Ho), 1 SPRAY NA DAILY PRN for PRN Pseudoephedrine-Guaifenesin (Mucinex D), 1 TAB PO BID PRN for CONGESTION Review of Systems Constitutional: No fever, No chills Respiratory: No shortness of breath Cardiovascular: No chest pain Abdomen: + problem reported (Perirectal pain, unable to sit without severe discomfort), No pain, No nausea, No vomiting, No diarrhea, No GI bleeding Physical Exam Date Time Temp Pulse Resp B/P (MAP) Pulse Ox O2 Delivery O2 Flow Rate FiO2 11/09/17 09:32 79 18 116/74 97 11/09/17 08:15 83 18 117/69 97 Room Air 11/09/17 05:49 86 170/83 96 Room Air 11/09/17 04:10 Room Air 11/09/17 03:40 36.7 111 24 165/97 97 Room Air General Appearance: WD/WN, no apparent distress Head: normocephalic, atraumatic Eyes: sclerae normal ENT: hearing grossly normal Neck: trachea midline Respiratory/Chest: no respiratory distress, no accessory muscle use Abdomen/GI: + pertinent finding (There is an incision of the left medial buttocks near rectum (Prior fistulotomy), tender to palpation, some induration, no significant erythema, streaking) Skin: normal color, warm/dry, no rash Laboratory Results Last 24 Hours Test 11/09/17 04:14 11/09/17 04:17 Bedside Lactic Acid Venous 2.36 mmol/L White Blood Count 11.30 K/uL Red Blood Count 4.80 M/uL Hemoglobin 15.2 g/dL Hematocrit 43.8 % Mean Corpuscular Volume 91.3 fL Mean Corpuscular Hemoglobin 31.7 pg Mean Corpuscular Hemoglobin Concent 34.7 g/dl Platelet Count 289 K/uL Neutrophils (%) (Auto) 73.2 % Lymphocytes (%) (Auto) 15.8 % Monocytes (%) (Auto) 8.6 % Eosinophils (%) (Auto) 1.9 % Basophils (%) (Auto) 0.3 % Neutrophils # (Auto) 8.28 K/uL Lymphocytes # (Auto) 1.78 K/uL Monocytes # (Auto) 0.97 K/uL Eosinophils # (Auto) 0.22 K/uL Basophils # (Auto) 0.03 K/uL Immature Granulocyte % (Auto) 0.2 % Immature Granulocyte # (Auto) 0.02 K/uL Prothrombin Time 9.4 SECONDS Prothromb Time International Ratio 0.9 Activated Partial Thromboplast Time 27.3 SECONDS Partial Thromboplastin Ratio 1.1 Sodium Level 133 mmol/L Potassium Level 4.1 mmol/L Chloride Level 101 mmol/L Carbon Dioxide Level 25 mmol/L Anion Gap 7.0 mmol/L Blood Urea Nitrogen 15 mg/dl Creatinine 1.21 mg/dl Est Creatinine Clear Calc Drug Dose 99.7 ml/min Estimated GFR () 83.9 Estimated GFR (Non- 72.4 BUN/Creatinine Ratio 12.0 Random Glucose 342 mg/dl Calcium Level 9.0 mg/dl Total Bilirubin 0.8 mg/dl Aspartate Amino Transf (AST/SGOT) 8 U/L Alanine Aminotransferase (ALT/SGPT) 35 U/L Alkaline Phosphatase 47 U/L Total Protein 7.7 gm/dl Albumin 3.3 gm/dl Globulin 4.4 gm/dl Albumin/Globulin Ratio 0.7 Beta-Hydroxybutyric Acid 0.69 mg/dL CT OF THE PELVIS WITH IV CONTRAST CLINICAL HISTORY: Rectal pain. Recent abscess drainage. COMPARISON STUDY: CT of the pelvis June 09, 2017. TECHNIQUE: Axial images of the pelvis were obtained following intravenous injection of 93 cc of Optiray 320 IV. FINDINGS: Note is made of moderate inflammation within the medial left buttock. There is an associated cutaneous 2 x 2 cm rim enhancing fluid collection as well as an adjacent 4 x 1.1 cm enhancing fluid collection. This could reflect two adjacent abscesses or one contiguous abscess. There is a suspected left perianal fistula which is suboptimally assessed by CT. This may be transsphincteric. This extends toward the left aspect of the anus and is similar in appearance to CT of June 09, 2017. There are no suspicious osseous lesions. There are sigmoid diverticulosis without evidence for acute diverticulitis. Caliber of visualized small and large bowel is normal. IMPRESSION: Inflammation within the medial left buttock with 2 adjacent abscesses which measure 4 x 1.1 and 2 x 2 cm. Alternatively, this could reflect one contiguous abscess. Associated suspected left-sided perianal fistula, which may be transsphincteric, which is suboptimally assessed by CT. Assessment & Plan 42 year-old male with recurrent perirectal abscess starting September of last year. Recent evaluation by colorectal surgeon (Dr. Valles) with outpatient fistulotomy on October 19. Presented to emergency room with complaint of increasing rectal pain and drainage. States the pain increased in nature the last 24 hours. Last bowel movement was yesterday. No seton was placed during last procedure. Leukocytosis of 11.3K. CT scan of pelvis showing inflammation within the medial left buttock with 2 adjacent abscesses which measure 4 x 1.1 and 2 x 2 cm. Alternatively, this could reflect one contiguous abscess. Associated suspected left-sided perianal fistula, which may be transsphincteric , which is suboptimally assessed by CT. Plan: Given patient just recently had procedure(fistulotomy) by colorectal surgeon ( Dr. Valles) would recommend transfer back to [place] for further evaluation and management by colorectal surgeon. Patient agreed this would be the best option for treatment as he just had procedure and the complexity of his case. Discussed recommendation with ER physician, either direct ER to ER transfer or discharging patient from ER and can travel to [place] [facility]. Continue pain management while in the ER. Saw patient with Dr. Cueto who evaluated patient and agrees with above.
--- NOTE | 2017-11-09 22:50 | EMERGENCY ROOM VISIT NOTE ---
History First contact with patient: 03:51 Chief Complaint: RECTAL PAIN Stated Complaint: CHILLS,NAUSEA,ANAL PAIN Nursing Triage Summary: Possible infected incision on rectum. History of Present Illness The patient is a 42 year old male who presents to the Emergency Room with complaints of increasing rectal pain over the past few days who had perianal surgery October [address] Hai peres in [place]. He has a follow -up appointment today in [place]. No temperature was documented. Patient states he has had some drainage from the area. He is not currently on antibiotics. Pain currently 9 out of 10. Palpation makes it worse and nothing makes it better. Patient denies chest pain, dyspnea, abdominal pain, vomiting, diarrhea, urinary symptoms. 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 Tetanus is current. Blood sugars are running around 100. Review of Systems An 10 system review of systems was completed with positives and pertinent negatives listed in the HPI. Past Medical/Surgical History Medical Problems: (1) Cellulitis (2) Diabetes (3) Hyperglycemia (4) Perianal abscess (5) Rectal abscess (6) Rectal or anal pain (7) Uncontrolled diabetes mellitus Family History No pertinent family history Social History Smoking Status: Never Smoker Drug Use: none Marital Status: Housing Status: lives with significant other Occupation Status: employed Current/Historical Medications Scheduled Insulin Glargine (Basaglar Kwikpen), 5 UNITS SC DAILY Metformin Hcl (Glucophage), Unknown Dose PO BIDM Scheduled PRN Epinephrine (Epipen), 0.3 MG IM UD PRN for Allergic Reaction Fluticasone Propionate (Nasal) (Allergy Nasal [place] [address]), 1 SPRAY NA DAILY PRN for PRN Pseudoephedrine-Guaifenesin (Mucinex D), 1 TAB PO BID PRN for CONGESTION Physical Exam Vital Signs Date Time Temp Pulse Resp B/P (MAP) Pulse Ox O2 Delivery O2 Flow Rate FiO2 11/09/17 09:32 79 18 116/74 97 11/09/17 08:15 83 18 117/69 97 Room Air 11/09/17 05:49 86 170/83 96 Room Air 11/09/17 04:10 Room Air 11/09/17 03:40 36.7 111 24 165/97 97 Room Air Physical Exam VITALS: Vitals are noted on the nurse's note and reviewed by myself. Vital signs hypertensive GENERAL: Pleasant male who appears in pain, in no acute distress, nondiaphoretic , well-developed well-nourished. SKIN: Capillary reflex less than 2 seconds. HEENT: Normocephalic. PERRLA. EOMI. Nares patent. Mucous membranes moist. Neck is supple without nuchal rigidity. HEART: Regular rate and rhythm without murmurs gallops or rubs. LUNGS: Clear to auscultation bilaterally without wheezes, rales or rhonchi. No retractions or accessory muscle use. ABDOMEN: Positive bowel sounds x 4. Normal tympanic percussion. Soft, nontender, without masses or organomegaly. Clemens sign negative. No guarding or rebound tenderness. No CVA tenderness Rectal exam: Left gluteal cleft erythematous and edematous and tender to palpation concerning for infection. Minimal purulent bloody discharge. MUSCULOSKELETAL: No gross musculoskeletal defects. NEURO: Patient was alert and oriented to person place and time. Normal sensation to light and sharp touch. No focal neurological deficits. Medical Decision & Procedures Laboratory Results 11/09/17 04:17 Red Blood Count 4.80, Mean Corpuscular Volume 91.3, Mean Corpuscular Hemoglobin 31.7, Mean Corpuscular Hemoglobin Concent 34.7, Neutrophils (%) (Auto) 73.2, Lymphocytes (%) (Auto) 15.8, Monocytes (%) (Auto) 8.6, Eosinophils (%) (Auto) 1.9, Basophils (%) (Auto) 0.3, Neutrophils # (Auto) 8.28, Lymphocytes # (Auto) 1.78, Monocytes # (Auto) 0.97, Eosinophils # (Auto) 0.22, Basophils # (Auto) 0.03 11/09/17 04:17 Test 11/09/17 04:14 11/09/17 04:17 Bedside Lactic Acid Venous 2.36 mmol/L (0.90-1.70) White Blood Count 11.30 K/uL (4.8-10.8) Red Blood Count 4.80 M/uL (4.7-6.1) Hemoglobin 15.2 g/dL (14.0-18.0) Hematocrit 43.8 % (42-52) Mean Corpuscular Volume 91.3 fL (80-100) Mean Corpuscular Hemoglobin 31.7 pg (25-34) Mean Corpuscular Hemoglobin Concent 34.7 g/dl (32-36) Platelet Count 289 K/uL (130-400) Neutrophils (%) (Auto) 73.2 % Lymphocytes (%) (Auto) 15.8 % Monocytes (%) (Auto) 8.6 % Eosinophils (%) (Auto) 1.9 % Basophils (%) (Auto) 0.3 % Neutrophils # (Auto) 8.28 K/uL (1.4-6.5) Lymphocytes # (Auto) 1.78 K/uL (1.2-3.4) Monocytes # (Auto) 0.97 K/uL (0.11-0.59) Eosinophils # (Auto) 0.22 K/uL (0-0.5) Basophils # (Auto) 0.03 K/uL (0-0.2) Immature Granulocyte % (Auto) 0.2 % Immature Granulocyte # (Auto) 0.02 K/uL (0.00-0.02) Prothrombin Time 9.4 SECONDS (9.0-12.0) Prothromb Time International Ratio 0.9 (0.9-1.1) Activated Partial Thromboplast Time 27.3 SECONDS (21.0-31.0) Partial Thromboplastin Ratio 1.1 Anion Gap 7.0 mmol/L (3-11) Est Creatinine Clear Calc Drug Dose 99.7 ml/min Estimated GFR () 83.9 Estimated GFR (Non- 72.4 BUN/Creatinine Ratio 12.0 (10-20) Calcium Level 9.0 mg/dl (8.5-10.1) Total Bilirubin 0.8 mg/dl (0.2-1) Aspartate Amino Transf (AST/SGOT) 8 U/L (15-37) Alanine Aminotransferase (ALT/SGPT) 35 U/L (12-78) Alkaline Phosphatase 47 U/L (45-117) Total Protein 7.7 gm/dl (6.4-8.2) Albumin 3.3 gm/dl (3.4-5.0) Globulin 4.4 gm/dl (2.5-4.0) Albumin/Globulin Ratio 0.7 (0.9-2) Beta-Hydroxybutyric Acid 0.69 mg/dL (0.2-2.81) Medications Administered Medications (Trade) Dose Ordered Sig/Sabina Route Start Time Stop Time Status Last Admin Dose Admin Sodium Chloride 1,000 ml @ 999 mls/hr Q1H1M STAT IV 11/09/17 03:55 11/09/17 04:55 DC 11/09/17 04:24 999 MLS/HR Hydromorphone HCl (Dilaudid Inj) 1 mg ONE STAT IV 11/09/17 03:55 11/09/17 03:58 DC 11/09/17 04:57 1 MG Ondansetron HCl (Zofran Inj) 4 mg NOW STAT IV 11/09/17 03:55 11/09/17 03:59 DC 11/09/17 04:25 4 MG Ceftriaxone Sodium (Rocephin Inj) 1 gm NOW STAT IV 11/09/17 03:55 11/09/17 03:59 DC 11/09/17 04:25 1 GM Vancomycin HCl 2500 mg/Sodium Chloride 550 ml @ 200 mls/hr ONE STAT IV 11/09/17 04:20 11/09/17 07:04 DC 11/09/17 04:57 200 MLS/HR Ketorolac Tromethamine (Toradol Inj) 15 mg NOW STAT IV 11/09/17 05:57 11/09/17 05:59 DC 11/09/17 06:25 15 MG Metoclopramide HCl (Reglan Inj) 10 mg NOW STAT IV 11/09/17 05:57 11/09/17 05:59 DC 11/09/17 06:25 10 MG ED Course Prior records reviewed and summarized as above. Triage Nursing notes reviewed. Additional history obtained from family]. The patient's history was concerning for swelling and redness of the skin. Differential diagnosis: Etiologies such as elvis gangrene, cellulitis, abscess, MRSA infection, necrotizing fasciitis, dermatitis, drug eruption, as well as others were entertained.. Physical examination: as above ER treatment provided: Rocephin, vancomycin, Dilaudid, Zofran, IV fluids On reassessment the patient felt better. Diagnostics interpreted by me: The labs revealed leukocytosis, hyperglycemia without DKA Elevated lactic acid. Blood cultures pending Imaging studies: CT concerning for perianal abscess. Surgery was consulted Consultation: A consultation was placed with the surgeon, Dr. Chaudhari. The case was discussed and diagnostics were reviewed. The patient was evaluated in the ER for further treatment by his surgical PA. This appears to be perianal abscess. Patient was neurovascularly and neurologically intact. He was afebrile and nontoxic. He was started on antibiotics. His blood sugar was elevated. He was not DKA. He will be evaluated by surgery. By the evaluation outlined above emergent etiologies such as necrotizing fasciitis, DVT, as well as others were deemed relatively unlikely. The pt informed about the findings as listed above. All questions were answered and pleased with the treatment. Case reviewed with my attending The chart was completed utilizing [employer] voice recognition software. Grammatical errors, random word insertions, pronoun errors, and incomplete sentences are an occassional consequence of this system due to software limitations, ambient noise, and hardware issues. Any formal questions or concerns about the content, text, or information contained within the body of this dictation should be directly addressed to the physician anesthetic assistant for clarification. Medical Decision As above Medication Reconcilliation Current Medication List: was personally reviewed by me Blood Pressure Screening Patient's blood pressure: Normal blood pressure Impression Primary Impression: Perianal abscess Additional Impression: Hyperglycemia Departure Information Dispostion Being Evaluated By Surgeon Condition FAIR Referrals Giuseppe Mora MD (PCP) Patient Instructions My [facility] Problem Qualifiers
== END 2017-11-09 09:33 | disposition short-term general hospital (02) ==
LOC: C.EDB 03:29
DX: K61.1 Rectal abscess (principal); E11.65 Type 2 diabetes mellitus with hyperglycemia; Z91.030 Bee allergy status; Z79.84 Long term (current) use of oral hypoglycemic drugs; Z79.4 Long term (current) use of insulin